=== PATIENT | female | born 1950 | race Caucasian/White ===

== ENCOUNTER 2016-05-05 02:21 | Inpatient (IN) ==
--- NOTE | 2016-05-04 09:48 | EKG Report ---
Test Performed on : 05/04/2016 09:32:43 AM Test Reason : PAT Blood Pressure : / mmHG Vent. Rate : 069 BPM Atrial Rate : 069 BPM P-R Int : 172 ms QRS Dur : 082 ms QT Int : 410 ms P-R-T Axes : 069 269 066 degrees QTc Int : 439 ms Normal sinus rhythm. Right superior axis deviation Abnormal ECG No previous ECGs available Confirmed by Toya ESCALANTE, Bryan Talamantes ([id number]) on 05/06/2016 3:21:49 PM
[2016-05-04 09:57] LABS: MANUAL DIFF NEEDED? NO; URINE MICRO REVIEW NEEDED? NO; URINE SOURCE CLEAN CATCH
[2016-05-04 10:01] LABS: BILIRUBIN URINE NEGATIVE (NEGATIVE); BLOOD URINE TRACE (NEGATIVE); COLOR YELLOW; GLUCOSE URINE NEGATIVE (NEGATIVE); LEUKOCYTES URINE LARGE (NEGATIVE); NITRITE URINE NEGATIVE (NEGATIVE); PH URINE 5.5; PROTEIN URINE NEGATIVE (NEGATIVE); SP GRAVITY URINE 1.018; TURBIDITY URINE HAZY (CLEAR); UR EPITHELIAL CELLS <10 /HPF (<10); URINE BACTERIA NEGATIVE /HPF; URINE RBC <10 /HPF (<10); UROBILINOGEN URINE NORMAL (NORMAL)
[2016-05-04 10:07] LABS: BASO% 0.7 % (0.0-0.8); EOS# 0.11 X1000 (0.0-0.7); EOS% 1.5 % (0.0-10.0); HEMATOCRIT 42.4 % (37.0-47.0); HEMOGLOBIN 14.7 g/dL (12.0-16.0); LYMPH# 1.91 X1000 (1.2-3.4); LYMPH% 26.5 % (20.5-51.1); MCH 34.8 PG (27-31); MCHC 34.7 g/dL (33-37); MCV 100.5 FL (81-99); MONO# 0.75 X1000 (0.11-0.59); MONO% 10.4 % (1.7-9.3); MPV 10.7 FL (7.4-10.4); NEUT% 60.9 % (42.2-75.2); PLT 257 X1000 (130-400); RBC 4.22 XMIL (4.2-5.4)
[2016-05-04 10:20] LABS: AGAP 15; BUN 11 mg/dL (8-22); CALCIUM 10.1 mg/dL (8.8-10.2); CHLORIDE 101 mmol/L (98-107); COSMO 282; POTASSIUM 4.7 mmol/L (3.5-5.1); SODIUM 142 mmol/L (136-145); TCO2 26 mmol/L (25-35)
--- NOTE | 2016-05-04 15:00 | Diag Imaging Result Document ---
PROCEDURE NAME: CHEST-2 VIEWS - 05/04/2016 CHEST X-RAY 2 VIEWS: COMPARISON: 08/21/2013. FINDINGS: There is grossly stable hyperinflation of the lungs suggesting COPD. There is a compression fracture at the bottom of the film on the lateral view, in the upper lumbar spine. This is age indeterminate. IMPRESSION: COPD. Age-indeterminate lumbar spine compression fracture.
[2016-05-05] MEDS ORDERED: FLAGYL 1000 MG/NS 200 ML IV ONE (07:00)
[2016-05-05] MEDS: LR 1,000 ML ONE (07:00)
[2016-05-05] MEDS: LEVAQUIN 500 MG/D5W 100 ML ONE ×2 (07:00→07:35)
[2016-05-05 09:22] LABS: URINE MICRO REVIEW NEEDED? NO; URINE SOURCE CATH
[2016-05-05 09:59] LABS: BILIRUBIN URINE NEGATIVE (NEGATIVE); BLOOD URINE NEGATIVE (NEGATIVE); COLOR YELLOW; GLUCOSE URINE NEGATIVE (NEGATIVE); LEUKOCYTES URINE NEGATIVE (NEGATIVE); NITRITE URINE NEGATIVE (NEGATIVE); PH URINE 6.5; PROTEIN URINE TRACE mg/dL (NEGATIVE); SP GRAVITY URINE 1.019; TURBIDITY URINE CLEAR (CLEAR); UROBILINOGEN URINE NORMAL (NORMAL)
[2016-05-05 10:00] LABS: UR EPITHELIAL CELLS <10 /HPF (<10); URINE BACTERIA NEGATIVE /HPF; URINE RBC 20-40 /HPF (<10); URINE WBC <10 /HPF (<10)
[2016-05-05] MEDS: PHENERGAN ONE ×3 (10:47→11:30)
[2016-05-05] MEDS ORDERED: FENTANYL ONE (10:51)
[2016-05-05] MEDS ORDERED: DIPRIVAN 1% ONE (10:51)
[2016-05-05] MEDS: DILAUDID ONE ×3 (10:56→11:06)
[2016-05-05] MEDS ORDERED: LR 1,000 ML ONE (11:16)
[2016-05-05] MEDS ORDERED: ZOFRAN ONE (11:24)
[2016-05-05] MEDS ORDERED: DECADRON ONE (11:24)
[2016-05-05] MEDS ORDERED: NEO-SYNEPHRINE ONE (11:24)
[2016-05-05] MEDS ORDERED: OFIRMEV 1000 MG/ISOTONIC SOLN 100 ML ONE (11:24)
[2016-05-05] MEDS ORDERED: QUELICIN (DOSE) ONE (11:24)
[2016-05-05] MEDS ORDERED: NEOSTIGMINE ONE (11:24)
[2016-05-05] MEDS ORDERED: ROBINUL ONE (11:24)
[2016-05-05] MEDS ORDERED: LR 2,000 ML ONE (11:24)
[2016-05-05] MEDS ORDERED: NORCURON ONE (11:24)
[2016-05-05] MEDS ORDERED: XYLOCAINE-MPF 2% ONE (11:24)
[2016-05-05] MEDS ORDERED: SODIUM CHLORIDE 0.9% 20 ML ONE (11:24)
--- NOTE | 2016-05-05 11:35 | OPERATIVE NOTE ---
PROCEDURE DATE: 05/05/2016 PREOPERATIVE DIAGNOSIS: Lesion of descending colon with high-grade dysplasia. Previous colonoscopy by Dr. Heart. PROCEDURE: Patient was brought to the operating room. After satisfactory induction of IV and endotracheal anesthesia, athrombic TEDs, a Luciano catheter, and orogastric tubes were placed. Her abdomen was broadly prepped and draped in the appropriate manner for a midline laparotomy. A xiphoid infraumbilical midline incision was taken sharply down through skin and subcutaneous tissue. The patient had had a previous lower midline incision from abdominal hysterectomy. Adhesions were taken down. The lesion was advertised as being in the splenic flexure. The splenic flexure was subsequently mobilized, with no evidence of tattoo or palpable lesion. In the descending mid area, the colon was quite redundant and had a large sharp band. On mobilization of this, the tattoo was discovered as well as the palpable lesion. A sleeve of descending colon was subsequently performed with removal of a portion of the descending colon 5 cm above and below the tattooed area. This was done with a MAXIMO stapler. Mesenteric attachments were taken down with the LigaSure instrument. A dmxv-je-tscg anastomosis was subsequently performed with the MAXIMO and closed off with a TA-45. The anastomosis would admit the tip of 2 fingers. The mesenteric defect was closed with interrupted 3-0 silk and the anastomosis staple line was bossed up with 2-0 silk. On completion and after accounting for all laparotomy sponges, the abdomen was irrigated. The spleen was inspected, felt not to be bleeding, and closure was subsequently initiated. The peritoneum was closed with a single running layer of #1 Vicryl. The fascia was closed with interrupted #1 Maxon. Subcutaneous tissue was debrided and the skin was closed with stainless steel clips. Sterile dressing was applied. The Luciano catheter was left indwelling. Orogastric tube was removed. She was awakened and extubated in the operating room, and transferred to recovery. ESTIMATED BLOOD LOSS: Around 100 mL.
[2016-05-05] MEDS ORDERED: DILAUDID PCA VIAL ONE (12:02)
[2016-05-05] MEDS ORDERED: NS 1,000 ML ONE (12:07)
[2016-05-05] MEDS ORDERED: NARCAN 0.4 MG in LR 1,000 ML IV PRN (16:31)
[2016-05-05] MEDS ORDERED: NARCAN IV PRN (16:31)
[2016-05-05] MEDS ORDERED: DILAUDID PCA VIAL IV PRN (16:31)
[2016-05-05] MEDS ORDERED: ZOFRAN IV PRN (16:31)
[2016-05-05] MEDS: FLAGYL 1000 MG/NS 200 ML IV SCH (17:33)
[2016-05-05] MEDS: PERIDEX MT SCH (20:53)
[2016-05-06] MEDS: FLAGYL 1000 MG/NS 200 ML IV SCH (00:46)
[2016-05-06] MEDS: NS 1,000 ML IV SCH ×3 (05:40→21:46)
[2016-05-06 06:06] LABS: MANUAL DIFF NEEDED? NO
[2016-05-06 06:26] LABS: BASO% 0.1 % (0.0-0.8); HEMATOCRIT 35.3 % (37.0-47.0); HEMOGLOBIN 11.8 g/dL (12.0-16.0); LYMPH# 0.74 X1000 (1.2-3.4); LYMPH% 7.2 % (20.5-51.1); MCH 33.6 PG (27-31); MCHC 33.4 g/dL (33-37); MCV 100.6 FL (81-99); MONO# 1.15 X1000 (0.11-0.59); MONO% 11.2 % (1.7-9.3); MPV 11.4 FL (7.4-10.4); NEUT% 81.5 % (42.2-75.2); PLT 199 X1000 (130-400); RBC 3.51 XMIL (4.2-5.4)
[2016-05-06 06:34] LABS: AGAP 11; BUN 8 mg/dL (8-22); CALCIUM 8.8 mg/dL (8.8-10.2); CHLORIDE 104 mmol/L (98-107); COSMO 274; POTASSIUM 3.9 mmol/L (3.5-5.1); SODIUM 138 mmol/L (136-145); TCO2 23 mmol/L (25-35)
--- NOTE | 2016-05-06 07:19 | EKG Report ---
Test Performed on : 05/06/2016 06:38:52 AM Test Reason : post-op Blood Pressure : / mmHG Vent. Rate : 066 BPM Atrial Rate : 066 BPM P-R Int : 162 ms QRS Dur : 080 ms QT Int : 382 ms P-R-T Axes : 068 -77 044 degrees QTc Int : 400 ms Normal sinus rhythm. Left axis deviation Nonspecific T wave abnormality Abnormal ECG When compared with ECG of 04-MAY-2016 09:32, (Unconfirmed) Nonspecific T wave abnormality, worse in Anterolateral leads Confirmed by Toya ESCALANTE, Bryan Talamantes ([id number]) on 05/06/2016 3:23:47 PM
[2016-05-06] MEDS: PERIDEX MT SCH ×3 (07:27→21:45)
[2016-05-06] MEDS: LR 1,000 ML IV SCH ×2 (07:35→16:05)
[2016-05-06] MEDS ORDERED: LEVAQUIN 500 MG/D5W 100 ML IV ONE (08:00)
[2016-05-07 07:14] LABS: MANUAL DIFF NEEDED? NO
[2016-05-07 07:18] LABS: BASO% 0.1 % (0.0-0.8); EOS# 0.06 X1000 (0.0-0.7); EOS% 0.7 % (0.0-10.0); HEMATOCRIT 35.1 % (37.0-47.0); HEMOGLOBIN 11.5 g/dL (12.0-16.0); LYMPH# 1.06 X1000 (1.2-3.4); LYMPH% 13.1 % (20.5-51.1); MCH 33.9 PG (27-31); MCHC 32.8 g/dL (33-37); MCV 103.5 FL (81-99); MONO# 0.86 X1000 (0.11-0.59); MONO% 10.6 % (1.7-9.3); MPV 11.2 FL (7.4-10.4); NEUT% 75.5 % (42.2-75.2); PLT 175 X1000 (130-400); RBC 3.39 XMIL (4.2-5.4)
[2016-05-07 07:32] LABS: AGAP 15; BUN 9 mg/dL (8-22); CALCIUM 8.5 mg/dL (8.8-10.2); CHLORIDE 102 mmol/L (98-107); COSMO 275; POTASSIUM 3.7 mmol/L (3.5-5.1); SODIUM 139 mmol/L (136-145); TCO2 22 mmol/L (25-35)
[2016-05-07] MEDS: PERIDEX MT SCH ×2 (09:44→21:52)
[2016-05-07] MEDS: LOVENOX SUBQ SCH (11:24)
[2016-05-07] MEDS: NS 1,000 ML IV SCH (11:24)
[2016-05-07] MEDS ORDERED: ZOFRAN IV PRN (16:21)
[2016-05-07] MEDS ORDERED: D/C PCA XX ONE (16:21)
[2016-05-07] MEDS: ZOFRAN PO SCH ×2 (17:42→21:52)
[2016-05-07] MEDS: LR 1,000 ML IV SCH (18:39)
[2016-05-07] MEDS: NORCO-5 PO PRN (21:51)
[2016-05-07] MEDS: COLACE PO SCH (21:51)
[2016-05-08] MEDS: NORCO-5 PO PRN ×4 (02:28→23:24)
[2016-05-08] MEDS: ZOFRAN PO SCH ×4 (05:15→23:24)
[2016-05-08] MEDS: NS 1,000 ML IV SCH (05:15)
[2016-05-08 06:02] LABS: MANUAL DIFF NEEDED? NO
[2016-05-08 06:14] LABS: BASO% 0.6 % (0.0-0.8); EOS# 0.21 X1000 (0.0-0.7); HEMATOCRIT 35.9 % (37.0-47.0); IMM GRAN# 0.02 X1000 (0.0-0.04); IMM GRAN% 0.4 % (0.0-0.5); LYMPH# 1.25 X1000 (1.2-3.4); LYMPH% 23.5 % (20.5-51.1); MCH 33.4 PG (27-31); MCHC 33.4 g/dL (33-37); MONO# 0.58 X1000 (0.11-0.59); MONO% 10.9 % (1.7-9.3); MPV 11.3 FL (7.4-10.4); NEUT% 60.6 % (42.2-75.2); PLT 195 X1000 (130-400); RBC 3.59 XMIL (4.2-5.4)
--- NOTE | 2016-05-08 10:19 | Diag Imaging Result Document ---
PROCEDURE NAME: FLAT/UPRIGHT ABD/1 VIEW CHEST - 05/08/2016 FLAT AND UPRIGHT WITH CHEST, THREE VIEWS: COMPARISON: The chest is compared to 05/04/2016. FINDINGS: The lungs remain well expanded and clear. No cardiomegaly. No free air beneath the diaphragm. There are multiple midline skin jake. Air is found throughout the small bowel and colon. No definite distention accept for the cecum filled with air. There are sutures in the pelvis. No organomegaly. No abnormal abdominal calcifications. IMPRESSION: The patient may have a mild ileus.
[2016-05-08] MEDS: COLACE PO SCH ×2 (10:25→23:24)
[2016-05-08] MEDS: THERA M PLUS PO SCH (10:25)
[2016-05-08] MEDS: LOVENOX SUBQ SCH (10:26)
[2016-05-08] MEDS: PERIDEX MT SCH (10:26)
[2016-05-08] MEDS ORDERED: DULCOLAX PR ONE (10:30)
[2016-05-09] MEDS: PERIDEX MT SCH ×3 (01:35→20:31)
[2016-05-09] MEDS: ZOFRAN PO SCH ×4 (06:11→22:36)
[2016-05-09] MEDS ORDERED: DULCOLAX PR ONE (08:44)
--- NOTE | 2016-05-09 09:18 | Diag Imaging Result Document ---
PROCEDURE NAME: FLAT/UPRIGHT ABD/1 VIEW CHEST - 05/09/2016 PLAIN RADIOGRAPH OF THE CHEST AND ABDOMEN, 3 VIEWS: COMPARISON: 05/08/2016. FINDINGS: Air is seen throughout the colon and small bowel similar to the previous study. There is no severe distention. This probably represents a mild ileus that is essentially stable. There is no large volume free abdominal gas. The abdomen is grossly stable, otherwise. There is stable linear mild atelectasis and/or scarring at the mid and lower lung zones. No new consolidations are identified. Cardiac silhouette is stable. IMPRESSION: Stable colonic and small bowel gas throughout the abdomen.
[2016-05-09] MEDS: COLACE PO SCH ×2 (10:06→20:31)
[2016-05-09] MEDS: THERA M PLUS PO SCH (10:06)
[2016-05-09] MEDS: NORCO-5 PO PRN ×3 (10:07→22:35)
[2016-05-09] MEDS: LOVENOX SUBQ SCH (10:07)
[2016-05-09] MEDS: DULCOLAX PR SCH (20:32)
[2016-05-09] MEDS: NS 1,000 ML IV SCH (22:40)
[2016-05-10] MEDS ORDERED: ZOFRAN PO PRN (04:51)
[2016-05-10] MEDS ORDERED: SALINE LOCK IV FLUID XX ONE (09:25)
[2016-05-10] MEDS: LOVENOX SUBQ SCH (12:14)
[2016-05-10] MEDS: NORCO-5 PO PRN ×2 (12:14→21:10)
[2016-05-10] MEDS: COLACE PO SCH ×2 (12:15→20:32)
[2016-05-10] MEDS: PERIDEX MT SCH ×2 (12:15→20:32)
[2016-05-10] MEDS: THERA M PLUS PO SCH (12:15)
[2016-05-10] MEDS: DULCOLAX PR SCH (20:33)
[2016-05-11 08:47] VITALS: BP 126/80
[2016-05-11] MEDS: THERA M PLUS PO SCH (10:01)
[2016-05-11] MEDS: PERIDEX MT SCH (10:02)
[2016-05-11] MEDS: LOVENOX SUBQ SCH (10:02)
[2016-05-11] MEDS: NORCO-5 PO PRN (10:07)
[2016-05-11] MEDS: COLACE PO SCH (10:07)
--- NOTE | 2016-05-11 11:07 | DISCHARGE SUMMARY ---
ADMISSION DATE: 05/05/2016 DISCHARGE DATE: 05/11/2016 DIAGNOSIS: Sigmoid colon cancer, T1, N0, M0. PROCEDURE PERFORMED: Partial left colectomy with primary anastomosis. HOSPITAL COURSE: The patient is a 65-year-old, white female referred by Dr. Heart for evaluation of a highly dysplastic lesion in her descending colon with the possibility of this being a cancer. It was a sessile polyp that was not able to be removed but several biopsies were obtained. She had other scattered benign polyps that had been removed at the same time. The patient underwent an outpatient mechanical and chemical bowel prep. On the day of surgery, underwent a partial left colectomy for removal of the tattooed lesion. It eventually revealed a superficial carcinoma with no stalk invasion and no positive lymph nodes. Hospitalization was initially complicated by mild ileus but this resolved. The patient subsequently tolerated her dietary advancements well and is eating solid food, and having some spontaneous bowel movements at this time. The wound appears to be well healed. She is for 21 days rehab in the senior living and then should be able to go home. There are no plans for chemotherapy or radiation. She will be followed by Dr. Heart with colonoscopies in 6 months.
== END 2016-05-11 14:49 | DRG 330 ==
LOC: SURHOLD 02:21 → 4N 16:15
PROVIDERS: ADMIT Surgery; ATTEND Surgery
PROC: 0DBM0ZZ Excision of Descending Colon, Open Approach (ICD-10-PCS; principal; 2016-05-05 09:02)
DX: C18.6 Malignant neoplasm of descending colon (principal); K91.89 Other postprocedural complications and disorders of digestive system; K56.7 Ileus, unspecified; Q43.8 Other specified congenital malformations of intestine; E03.9 Hypothyroidism, unspecified; M19.90 Unspecified osteoarthritis, unspecified site; M06.9 Rheumatoid arthritis, unspecified; Z87.891 Personal history of nicotine dependence
CPT/HCPCS: 71020; 74022; 80048; 81001; 82948; 85025; 86850; 86900; 86901; 88307; 88313; 93005; 93010; 94761; 94799; J0131; J0330; J1100; J1170; J1650; J2370; J2405; J2550; J3010; J7030; J7120; J2710; S0030

== ENCOUNTER 2018-10-03 13:19 | Inpatient (IN) ==
[2018-10-03] MEDS ORDERED: ASPIRIN PO ONE (13:39)
--- NOTE | 2018-10-03 13:43 | EKG Report ---
Test Performed on : 10/03/2018 1:27:39 PM Test Reason : CP Blood Pressure : / mmHG Vent. Rate : 098 BPM Atrial Rate : 098 BPM P-R Int : 128 ms QRS Dur : 064 ms QT Int : 342 ms P-R-T Axes : 061 269 069 degrees QTc Int : 436 ms Normal sinus rhythm. Inferior infarct , age undetermined Possible Anterolateral infarct , age undetermined Abnormal ECG When compared with ECG of 06-MAY-2016 06:38, Vent. rate has increased BY 32 BPM Nonspecific T wave abnormality no longer evident in Inferior leads Nonspecific T wave abnormality, improved in Anterolateral leads Unconfirmed Result
[2018-10-03 13:57] LABS: BASO% 1.3 % (0.0-0.8); EOS# 0.43 X1000 (0.0-0.7); EOS% 5.8 % (0.0-10.0); HEMATOCRIT 43.4 % (37.0-47.0); IMM GRAN# 0.02 X1000 (0.0-0.04); IMM GRAN% 0.3 % (0.0-0.5); LYMPH# 1.18 X1000 (1.2-3.4); LYMPH% 15.8 % (20.5-51.1); MCH 34.8 PG (27-31); MCHC 34.6 g/dL (33-37); MCV 100.7 FL (81-99); MONO# 0.76 X1000 (0.11-0.59); MONO% 10.2 % (1.7-9.3); MPV 9.7 FL (7.4-10.4); NEUT# 4.97 X1000 (1.4-6.5); NEUT% 66.6 % (42.2-75.2); PLT 346 X1000 (130-400); RBC 4.31 XMIL (4.2-5.4); RDW 13.6 % (11.5-14.5); WBC 7.46 X1000 (4.8-10.8)
--- NOTE | 2018-10-03 13:58 | Diag Imaging Result Doc PS360 ---
CHEST-2 VIEWS - 10/03/2018 INDICATION: CP COMPARISON: 05/09/2016 FINDINGS: Stable hyperexpanded lungs compatible with COPD. No infiltrates or edema. Heart size and pulmonary vascularity is normal. There is a high-grade compression fracture at L1. This is age-indeterminate, but probably new since 2017. IMPRESSION: COPD. Compression fracture at L1. Electronically signed by William Zayas 10/03/2018 1:56 PM
[2018-10-03 14:05] LABS: INR 0.9; PROTIME 12.2 Seconds (11.0-16.0)
[2018-10-03 14:06] LABS: PTT 29.5 Seconds (22.3-41.8)
[2018-10-03 14:17] LABS: AGAP 19; ALB/GLOB RATIO 1.6; ALBUMIN 4.3 g/dL (3.5-5.0); ALKALINE PHOSPHATASE 128 U/L (32-104); BUN 12 mg/dL (8-22); CALCIUM 9.8 mg/dL (8.8-10.2); CHLORIDE 101 mmol/L (98-107); CK PROFILE 19 U/L (24-173); COSMO 280; CREATININE 0.5 mg/dL (0.5-0.9); ESTIMATED GFR > 60; GLUCOSE 114 mg/dL (70-104); GOT 19 U/L (10-30); GPT 12 U/L (10-36); LIPASE 17 U/L (13-60); POTASSIUM 4.8 mmol/L (3.5-5.1); SODIUM 140 mmol/L (136-145); TCO2 20 mmol/L (25-35); TOTAL BILIRUBIN 0.47 mg/dL (0.20-1.00)
--- NOTE | 2018-10-03 15:20 | PROVIDER DOCUMENTATION ---
This chart was entered by Radha Massey Scribe, acting as scribe for Rajani Razo CRNP. HPI-Abdominal Pain/GI Problem - General Chief Complaint: Chest Pain Stated Complaint: CP,WEAK,VOMITING,DIABETIC,RT SIDE PAIN Time Seen by Provider: 10/03/18 15:05 Source: patient Allergies/Adverse Reactions: Patient Allergies Allergy/AdvReac Type Severity Reaction Status Date / Time Penicillins Allergy Severe ANAPHYLAXIS Verified 10/03/18 15:05 acetaminophen [From NyQuil] Allergy SWELLING Verified 10/03/18 15:05 dextromethorphan HBr * Allergy SWELLING Verified 10/03/18 15:05 [From NyQuil] doxylamine succinate * Allergy SWELLING Verified 10/03/18 15:05 [From NyQuil] pseudoephedrine HCl * Allergy SWELLING Verified 10/03/18 15:05 [From NyQuil] Home Medications: Home Medication List Medication Instructions Recorded Confirmed Last Taken Type NK [No Home Medications] 10/03/18 10/03/18 Unknown History - History of Present Illness-ABD Nature of Presenting Problems: 68 y/o female presents to ED with R rib/chest wall pain, abdominal pain,N/V, and weakness onset last week. Pt reports eating and inspiration exacerbates her pain. Pt denies SOB, fever, or chills. Pt states last bowel movement was yesterday. Pt is alert and oriented. Abdominal Pain Onset Location: reports: generalized abdomen Pain Radiation: reports: no radiation Quality of Pain: reports: aching Severity in ED: reports: mild Onset/Duration: reports: last week Timing: reports: still present Activities at Onset: reports: none Exposure to sick contacts?: No Modifying Factors: worse with: breathing, eating, palpation Associated Symptoms: reports: nausea, vomiting, weakness, other (R rib/chest wall pain; abdominal pain) Last BM: 24 hours ago Dark Stools Present?: reports: none noticed Rectal Bleeding: reports: none Rectal Pain: reports: none Similar Symptoms Previously?: No Recently seen or treated by another doctor?: No Review of Systems - Adult - REVIEW OF SYSTEMS - ADULT Constitutional: denies: chills, fever Eyes: reports: no symptoms reported Ears, Nose, Mouth & Throat: reports: no symptoms reported Cardiovascular: denies: chest pain, palpitations Respiratory: denies: cough, shortness of breath Gastrointestinal: reports: abdominal pain, nausea, vomiting. denies: diarrhea Genitourinary: reports: no symptoms reported Musculoskeletal: reports: other (R rib/chest wall pain). denies: back pain, joint pain Integumentary: reports: no symptoms reported Neurological: reports: other (weakness). denies: dizziness/vertigo, seizure Psychiatric: reports: no symptoms reported Endocrine: reports: no symptoms reported Hematologic/Lymphatic: reports: no symptoms reported Allergic/Immunologic: reports: no symptoms reported All Other Systems: Reviewed and Negative Past History - Adult - PAST MEDICAL HISTORY-ADULT Review of Records: reports: Old Records Reviewed, Nursing Assessment Review, Medications Reviewed Major Childhood Illnesses: reports: denies history Psychiatric: reports: anxiety Endocrine/Immune: reports: Diabetes, hypoglycemia - PRIOR SURGERIES/PROCEDURES Surgical/Procedure History: reports: hysterectomy, bowel surgery (colon resection) - IMMUNIZATION STATUS Childhood Immunizations: See Nurse Assessment Flu Vaccine: See Nurse Assessment - FAMILY HISTORY Family History: reviewed, not pertinent - SOCIAL HISTORY Smoking: less than 1 pack/day Provider spent 3-5 mins advising pt. on dangers of tobacco.: Discussed manners to quit use, and f/u contacts for add'l counseling. Substance Use: none/never Alcohol Use Frequency: every day Number of drinks per typical drinking period:: 3-4 drinks Living Situation: family Physical Exam-General - PHYSICAL EXAM-ADULT Initial Vital Signs Reviewed: Yes - CONSTITUTIONAL General Appearance: appears well, alert, no apparent distress - EYES Eyes: PERRL/EOMI, pink conjunctivae - HEAD, EARS, NOSE, MOUTH & THROAT HENMT: normocephalic/atraumatic, moist mucous membranes, normal ENT inspection - NECK Neck: non-tender, full range of motion - RESPIRATORY Respiratory: lungs clear, normal breath sounds, other (tenderness at the base of R ribs with palpation and inspiration) - CARDIOVASCULAR Cardiovascular: normal peripheral pulses, regular rate, rhythm - GASTROINTESTINAL (ABDOMEN) Abdominal Exam: normal bowel sounds, soft, tenderness (RLQ) - MUSCULOSKELETAL Back Exam: normal inspection, no CVA tenderness, no vertebral tenderness Extremity: normal range of motion, non-tender, normal gait - SKIN Integumentary: normal color, warm/dry - NEUROLOGIC Neurologic: grossly normal - PSYCHIATRIC Psych/Mental Status: normal mood/affect, normal thought content, normal thought process, oriented x 3 Progress - PLAN OF CARE/RESULTS Progress/Plan/Lab Results: Vital Signs - 8 hr 10/03/18 13:27 Temperature 97.6 F Pulse Rate 102 H Respiratory Rate 19 Blood Pressure 119/76 O2 Sat by Pulse Oximetry 97 Laboratory Results - last 24 hr 10/03/18 10/03/18 10/03/18 13:44 13:44 13:44 WBC 7.46 RBC 4.31 Hgb 15.0 Hct 43.4 MCV 100.7 H MCH 34.8 H MCHC 34.6 RDW Std Deviation 13.6 Plt Count 346 MPV 9.7 Immature Gran % (Auto) 0.3 Neut % (Auto) 66.6 Lymph % (Auto) 15.8 L [place] % (Auto) 10.2 H Eos % (Auto) 5.8 Baso % (Auto) 1.3 H Immature Gran # (Auto) 0.02 Neut # (Auto) 4.97 Lymph # (Auto) 1.18 L [place] # (Auto) 0.76 H Eos # (Auto) 0.43 Baso # (Auto) 0.10 PT INR PTT (Actin FS) Sodium 140 Potassium 4.8 Chloride 101 Carbon Dioxide 20 L Anion Gap 19 BUN 12 Creatinine 0.5 Estimated GFR/1.73 m2 > 60 BUN/Creatinine Ratio 24 Glucose 114 H Calculated Osmolality 280 Calcium 9.8 Total Bilirubin 0.47 AST 19 ALT 12 Alkaline Phosphatase 128 H Creatine Kinase 19 L Troponin T Ttp-W-Xjgrcyqnluf Pept 1021 H Total Protein 7.0 Albumin 4.3 Globulin 2.7 Albumin/Globulin Ratio 1.6 Lipase 17 10/03/18 10/03/18 13:44 13:44 WBC RBC Hgb Hct MCV MCH MCHC RDW Std Deviation Plt Count MPV Immature Gran % (Auto) Neut % (Auto) Lymph % (Auto) [place] % (Auto) Eos % (Auto) Baso % (Auto) Immature Gran # (Auto) Neut # (Auto) Lymph # (Auto) [place] # (Auto) Eos # (Auto) Baso # (Auto) PT 12.2 INR 0.90 PTT (Actin FS) 29.5 Sodium Potassium Chloride Carbon Dioxide Anion Gap BUN Creatinine Estimated GFR/1.73 m2 BUN/Creatinine Ratio Glucose Calculated Osmolality Calcium Total Bilirubin AST ALT Alkaline Phosphatase Creatine Kinase Troponin T < 0.010 Jya-W-Idogxdwaexk Pept Total Protein Albumin Globulin Albumin/Globulin Ratio Lipase Orders Category Date Time Status Cardiac Monitoring DIRECTED Care 10/03/18 13:39 Active Oxygen Therapy- ED Nursing DIRECTED Care 10/03/18 13:39 Active Saline Loc NOW Care 10/03/18 13:39 Active NPO Diet 10/03/18 13:39 Active CHEST-2 VIEWS [RAD] Stat Exams 10/03/18 13:[address] ABD/PELVIS W/IV CONT ONLY [CT] Stat Exams 10/03/18 15:02 Ordered CBC WITH DIFF [HEME] Stat Lab 10/03/18 13:44 Completed CK PROFILE [SP CHEM] Stat Lab 10/03/18 13:44 Completed COMPREHENSIVE METABOLIC PANEL [CHEM] Stat Lab 10/03/18 13:44 Completed LIPASE [CHEM] Stat Lab 10/03/18 13:44 Completed PRO B-NATRIURETIC PEPTIDE Stat Lab 10/03/18 13:44 Completed PROTIME WITH INR [COAG] Stat Lab 10/03/18 13:44 Completed PTT [COAG] Stat Lab 10/03/18 13:44 Completed TROPONIN T Stat Lab 10/03/18 13:44 Completed Aspirin Med 10/03/18 13:39 Discontinued 325 mg PO NOW ONE Abd Pain/OB <20 weeks Stat Oth 10/03/18 13:39 Ordered CP/SOB/Palp >45 yrs of Age Stat Oth 10/03/18 13:39 Ordered EKG [EKG] Stat Ther 10/03/18 13:39 Draft Result Diagrams: 10/03/18 13:44 10/03/18 13:44 - EKG 1 Time of EKG reading by physician:: 13:29 EKG Read and Signed by:: Rajani Razo EKG Interpretation (*Must complete 3 of following elements*): Abnormal Rate: 98 Rhythm: NSR [place]: normal QRS: other (inferior infarct; possible anterolateral infarct) MI Interval: normal ST Wave: normal - XRAY 1 XRAY Study: Chest Impression: See EMR Report ([facility] - [address], [address], [place] [address] [facility] - [address] [place] [address] Department of Imaging Patient: ILSA LUCIANO Date: 10/03/18MR#: [id number] : 1950ADM Status: PRE ERAcct#: [id number] Age/Sex: 68/FRoom/Bed: Loc: ED Ordering Physician: Rachana Lewis MD Family Physician: None,PCP Reason for Procedure: CP ___ Signed CHEST-2 VIEWS - 10/03/2018 INDICATION: CP COMPARISON: 05/09/2016 FINDINGS: Stable hyperexpanded lungs compatible with COPD. No infiltrates or edema. Heart size and pulmonary vascularity is normal. There is a high-grade compression fracture at L1. This is age-indeterminate, but probably new since 2017. IMPRESSION: COPD. Compression fracture at L1. Electronically signed by William Zayas 10/03/2018 1:56 PM 10/03/18 1356 Interpreting Physician: William Zayas MD Dictated Date/Time: 10/03/18 1356 cc: Rachana Lewis MD; None,PCP) - CT/MRI 1 CT Study: Abdomen, Pelvis Impression: See EMR Report ([facility] - [address], [address], [place] [id number] [facility] - [address] [place] [address] Department of Imaging Patient: ILSA LUCIANO Date: 10/03/18#: [id number] : 1950ADM Status: PRE ERAcct#: [id number] Age/Sex: 68/FRoom/Bed: Loc: ED Ordering Physician: Rajani Razo Family Physician: None,PCP Reason for Procedure: abd pain RUQ TENDERNESS, RLQ TENDERNESS Signed CT ABD/PELVIS W/IV CONT ONLY - 10/03/2018 INDICATION: abd pain RUQ TENDERNESS, RLQ TENDERNESS COMPARISON: None FINDINGS: No infiltrates in the lung bases. Heart size is normal with no pericardial effusion. There is a large irregular mass centered about the hepatic flexure of the colon. This displaces the gallbladder anteriorly. This mass measures about 9.3 x 8.8 cm. This demonstrates heterogeneous, primarily peripheral contrast enhancement. There is no bowel obstruction. There are surgical suture lines at the sigmoid colon. There is cystitis. Uterus is absent. Rectum is normal. The liver, gallbladder, spleen, pancreas, adrenals, and kidneys are normal. There are old compression fractures at T12 and L2. No suspicious bony lesions. IMPRESSION: 1. Large mass in the right upper quadrant indicating advanced malignancy. Most likely represents colon cancer. Other possibilities include ovarian, endometrial, hepatobiliary, or pancreatic tumor. 2. Cystitis. This exam was performed using automated exposure control, adjustment of mA or kV according to patient size, and/or use of iterative reconstruction technique Electronically signed by William Zayas 10/03/2018 4:12 PM 10/03/18 1612 Interpreting Physician: William Zayas MD Dictated Date/Time: 10/03/18 1608 cc: Rajani Razo; No ne,PCP) - CONSULTS/PCP/HOSPITALIST Notification #1 *Consult/PCP/Hospitalist*: WARD Time Discussed: 16:46 Consult Disposition: Admit Departure - Departure Date of Disposition Decision: 10/03/18 Time of Disposition Decision: 16:46 DIAGNOSIS: Abdominal mass, Nausea & vomiting Disposition: ADMITTED INPATIENT 09 Certified Medical Emergency: Emergent Condition: Stable Referrals and Follow-Ups: None,PCP [NON-STAFF PROVIDER] - Discharge Education: Steps to Quit Smoking, Getl-pr-Ayki - Critical Care Note This patient required my direct & personal management of CC.: No Attestation - Physician/ MARICRUZ Attestation Patient care was provided by Advanced Practice Provider:: Yes Advanced Practice Provider:: Rajani Razo Advanced Practice Provider documentation review:: The Mid-level provider doc umentation, treatment plan and medical decision making was reviewed by the physician who agrees with all treatment and medical decision making by the MLP. The physician spent face to face time with patient:: No Advanced Practice Provider documentation review:: Supervising physician onsite and consulted in the evaluation and care of this patient. The physician did not have a face to face encounter with the patient. This chart was documented by the indicated scribe, (Radha Massey, Yumiko) and accurately reflects the services I performed and decisions made by , Rajani Razo CRNP, as attested by the provider's signature.
--- NOTE | 2018-10-03 16:15 | Diag Imaging Result Doc PS360 ---
CT ABD/PELVIS W/IV CONT ONLY - 10/03/2018 INDICATION: abd pain RUQ TENDERNESS, RLQ TENDERNESS COMPARISON: None FINDINGS: No infiltrates in the lung bases. Heart size is normal with no pericardial effusion. There is a large irregular mass centered about the hepatic flexure of the colon. This displaces the gallbladder anteriorly. This mass measures about 9.3 x 8.8 cm. This demonstrates heterogeneous, primarily peripheral contrast enhancement. There is no bowel obstruction. There are surgical suture lines at the sigmoid colon. There is cystitis. Uterus is absent. Rectum is normal. The liver, gallbladder, spleen, pancreas, adrenals, and kidneys are normal. There are old compression fractures at T12 and L2. No suspicious bony lesions. IMPRESSION: 1. Large mass in the right upper quadrant indicating advanced malignancy. Most likely represents colon cancer. Other possibilities include ovarian, endometrial, hepatobiliary, or pancreatic tumor. 2. Cystitis. This exam was performed using automated exposure control, adjustment of mA or kV according to patient size, and/or use of iterative reconstruction technique Electronically signed by William Zayas 10/03/2018 4:12 PM
[2018-10-03] MEDS ORDERED: ZOFRAN IV ONE (16:28)
--- NOTE | 2018-10-03 18:46 | HISTORY AND PHYSICAL ---
PRIMARY CARE PROVIDER: Scott Pennington MD EDITOR & CO FOUNDER: Suleiman Heart M.D. CHIEF COMPLAINT: Right upper quadrant abdominal pain with nausea and vomiting. HISTORY OF PRESENT ILLNESS: Ms. 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 He has been routinely followed up by her golf tournament consultant, Dr. Heart. She most recently had a colonoscopy in June of 2018 with biopsy at that time of a polyp at the splenic flexure, which shows tubulovillous adenoma, and she was informed that she will be having colonoscopies yearly as follow up. Her complaints are for 2 weeks she has had nausea and vomiting about 20 to 30 minutes after eating. She has developed right upper quadrant pain that is extremely tender to palpation, more weak and 25-30 pound weight loss. So workup included an abdominal pelvic CT which revealed a large mass in the right upper quadrant indicating advanced malignancy that is reported. It also shows cystitis so we will get a consult in for Oncology. She has never seen anyone before as last time the cancer was not invasive, and she did not require chemo or radiation. Dr. Olson is on- call. We will also consult Dr. Winston, gastroenterologists, that is fire prevention research engineer as well. Denies any fever or chills. No other complaints. PAST MEDICAL HISTORY: 1. 2017, sigmoid adenocarcinoma with colon resection. 2. Arthritis. 3. Seasonal allergies. PAST SURGICAL HISTORY: 1. June 2018 had colonoscopy with polypectomy. 2. Sigmoid colon resection 2016. 3. Hysterectomy. 4. Appendectomy. SOCIAL HISTORY: Smokes she claims to be 2 cigarettes per day, but she has been a smoker since the age of 13. She drinks beer daily anywhere from 2 to 3 beers every evening. Currently lives with her daughter. Denies any illicit drug use. FAMILY HISTORY: Mother had congestive heart failure. Father had cirrhosis. ALLERGIES: Penicillin, dextromethorphan, doxylamine and pseudoephedrine, also Codeine. HOME MEDICATIONS.: Currently none listed and at home she takes [id number] sometimes for her seasonal allergies and sinuses. REVIEW OF SYSTEMS: Fourteen-point review of systems are complete and all are negative except for those mentioned above in HPI. Poor p.o. intake for 2 weeks. PHYSICAL EXAMINATION: VITAL SIGNS: Temperature 97.6 degrees, heart rate 102, respiratory rate 19, blood pressure 119/76, O2 saturation 97% on room air, 5 feet 4 inches tall, 115 pounds. BMI is 19.7. GENERAL: Ms. Justine Hernandes is a 68-year-old female. She is in no acute distress. She is able to answer questions appropriately. HEENT: Atraumatic, normocephalic. Pupils equal, round, reactive to light. Extraocular movements intact. Mucous membranes are dry. NECK: Trachea midline. CARDIOVASCULAR: S1, S2. Regular rate and rhythm. No rubs, gallops, murmurs. No lower extremity edema. +2 dorsalis and radial pulses. Negative JVD or carotid bruits. PULMONARY: Clear to auscultation bilateral breath sounds. No accessory muscle use or work of breathing noted. Tolerating room air. GASTROINTESTINAL: Soft, severe tenderness in the right upper quadrant with palpation of the mass. Positive bowel sounds x4. EXTREMITIES: Moves all extremities equally. Full range of motion. NEUROLOGIC: A and O x3. Follows commands. Sensory is intact. SKIN: Warm, dry, intact. LABORATORY DATA: White blood cells 7000, hemoglobin 15, hematocrit 43, platelet count 346,000. INR 0.90, PTT is 29.5. Sodium 140, potassium 4.8, BUN 12, creatinine 0.5, glucose 114, calcium 9.8, bilirubin 0.47, AST 19, ALT 12, CK 19, troponin less than 0.01. ProBNP 1021, albumin 4.3. IMAGING: Chest x-ray: COPD and compression fracture of L1. Abdominal pelvic CT: Large mass in the right upper quadrant indicating evidence of malignancy, most likely represents colon cancer. Other possibilities include ovarian, endometrial, hepatobiliary or pancreatic tumor, and it also shows cystitis. EKG: Normal sinus rhythm, rate 98, QTc 436. ASSESSMENT AND PLAN: 1. Right upper quadrant abdominal mass with pain and history of sigmoid adenocarcinoma with polyps. Followed by Dr. Heart as outpatient. Most recently had a colonoscopy in June. We will consult Dr. Winston. Also consult Oncology for any further recommendations. We will do clear liquids for now. Advance as tolerated. Antiemetics as needed. Morphine for pain. 2. Imaging reveals cystitis, but she is asymptomatic. White count is normal, afebrile. We will get a urinalysis. 3. Arthritis, but she does not take any medication at home for it. 4. Seasonal allergies. No medications that she is taking right now. She only takes something p.r.n. at home. 5. Deep venous thrombosis prophylaxis. SCDs. 6. Tobacco abuse. Cessation discussed. 7. Daily drinking of beer anywhere from 2 to 3 beers per day. No history of withdrawal. Dictated by ANTHONY Hauser for Matt Shepard MD cc: ANTHONY Hauser Agree with the above. the following is my own face to face assessment. patient with large RUQ mass concerning for malignancy. uncertain primary as she has had a recent colonoscopy but also with history of early stage colon cancer. will get a biopsy of some kind and proceed from there. on exam, mild RUQ tenderness. normal bowel sounds. mass palpable. MTDD
[2018-10-03] MEDS: NS 1,000 ML IV SCH (20:29)
[2018-10-03] MEDS: MORPHINE IV PRN (20:52)
[2018-10-04 00:49] LABS: URINE SOURCE CLEAN CATCH
[2018-10-04 01:04] LABS: BILIRUBIN URINE NEGATIVE (NEGATIVE); BLOOD URINE MODERATE (NEGATIVE); COLOR YELLOW; GLUCOSE URINE NEGATIVE (NEGATIVE); KETONE URINE 20 mg/dL (NEGATIVE); LEUKOCYTES URINE NEGATIVE (NEGATIVE); NITRITE URINE NEGATIVE (NEGATIVE); PROTEIN URINE 30 mg/dL (NEGATIVE); TURBIDITY URINE CLEAR (CLEAR); UROBILINOGEN URINE NORMAL (NORMAL)
[2018-10-04 01:06] LABS: UR EPITHELIAL CELLS <10 /HPF (<10); URINE BACTERIA NEGATIVE /HPF; URINE RBC <10 /HPF (<10); URINE WBC <10 /HPF (<10)
[2018-10-04 05:37] LABS: BASO# 0.06 X1000 (0.0-0.2); BASO% 1.2 % (0.0-0.8); EOS# 0.47 X1000 (0.0-0.7); EOS% 9.4 % (0.0-10.0); HEMATOCRIT 40.2 % (37.0-47.0); HEMOGLOBIN 13.2 g/dL (12.0-16.0); LYMPH% 18.1 % (20.5-51.1); MCH 34.2 PG (27-31); MCHC 32.8 g/dL (33-37); MCV 104.1 FL (81-99); MONO# 0.59 X1000 (0.11-0.59); MONO% 11.8 % (1.7-9.3); MPV 9.9 FL (7.4-10.4); NEUT# 2.96 X1000 (1.4-6.5); NEUT% 59.5 % (42.2-75.2); PLT 269 X1000 (130-400); RBC 3.86 XMIL (4.2-5.4); RDW 13.5 % (11.5-14.5); WBC 4.98 X1000 (4.8-10.8)
[2018-10-04 05:40] LABS: INR 0.89; PROTIME 12.1 Seconds (11.0-16.0)
[2018-10-04 06:10] LABS: AGAP 12; ALB/GLOB RATIO 1.1; ALBUMIN 3.3 g/dL (3.5-5.0); ALKALINE PHOSPHATASE 97 U/L (32-104); BUN 11 mg/dL (8-22); CALCIUM 9.1 mg/dL (8.8-10.2); CHLORIDE 104 mmol/L (98-107); COSMO 273; CREATININE 0.5 mg/dL (0.5-0.9); ESTIMATED GFR > 60; GLUCOSE 87 mg/dL (70-104); GOT 14 U/L (10-30); GPT 9 U/L (10-36); MAGNESIUM 2.1 mg/dL (1.5-2.7); POTASSIUM 3.9 mmol/L (3.5-5.1); SODIUM 137 mmol/L (136-145); TCO2 21 mmol/L (25-35); TOTAL BILIRUBIN 0.37 mg/dL (0.20-1.00); TOTAL PROTEIN 6.3 g/dL (6.3-8.3)
[2018-10-04] MEDS: ZOFRAN IV PRN ×3 (08:23→17:58)
[2018-10-04] MEDS: MORPHINE IV PRN ×4 (08:24→17:59)
[2018-10-04] MEDS: PRILOSEC PO SCH (08:38)
[2018-10-04] MEDS: NS 1,000 ML IV SCH (08:39)
--- NOTE | 2018-10-04 11:21 | PROGRESS NOTE ---
DATE: 10/04/2018 INTERVAL HISTORY: Ms. Hernandes was admitted for right upper quadrant abdominal pain, nausea, and vomiting of about 2 weeks' duration. The CAT scan had suggested about a 9 x 8 cm right upper quadrant mass, though she had a biopsy in June 2018 which was just showing tubulovillous adenoma. SUBJECTIVE: She was sleepy. She woke up on my encounter. She denies a history of alcohol withdrawal. I counseled her about not drinking alcohol and stopping smoking. We discussed about CAT scan finding and the fact that we are waiting for GI and recommendations from oncology. VITALS: Currently, temperature 98.1 degrees, pulse 70, respiratory rate 18, blood pressure 137/64, she is saturating 98% on room air. PHYSICAL EXAMINATION: Cachectic. Not in any acute distress. Oral cavity is moist. Lungs: Air entry bilaterally equal. No wheeze, rhonchi, crackles. Cardiovascular: S1, S2 normal. No murmur, rub, or gallop. Abdomen: Soft, nontender except right upper quadrant epigastric where there is significant tenderness. Active bowel sounds. No lower extremity edema. LABS: Normal hemoglobin, though she does have macrocytosis. Normal kidney function. Normal electrolytes. MICROBIOLOGY: No data. IMAGING: No new imaging. ASSESSMENT AND PLAN: 1. Right upper quadrant abdominal mass suspicious of malignancy with prior history of sigmoid adenocarcinoma in 2017 requiring left colectomy. Current mass is concerning for recurrence of malignancy. I will await further gastroenterology and oncology recommendation about need for colonoscopy, staging, and possibly resection in the future. She currently does not have any clinical features of intestinal obstruction. Continue her on intravenous fluids and a clear liquid diet. 2. Alcohol use disorder and tobacco use disorder. Patient was counseled about not using alcohol. I will keep her on a nicotine patch as needed. She does not have any signs of withdrawal. 3. Disposition. I will continue to monitor the patient inside hospital as I await further recommendation from oncology team. Plan of care was discussed with her and her family. All of their questions have been answered. cc: Lucas Hsu MD
--- NOTE | 2018-10-04 11:52 | EKG Report ---
Test Performed on : 10/04/2018 11:45:25 AM Test Reason : Follow up EKG Blood Pressure : / mmHG Vent. Rate : 063 BPM Atrial Rate : 063 BPM P-R Int : 146 ms QRS Dur : 082 ms QT Int : 400 ms P-R-T Axes : 054 -81 046 degrees QTc Int : 409 ms Normal sinus rhythm. Left axis deviation Inferior infarct (cited on or before 03-OCT-2018) Abnormal ECG When compared with ECG of 03-OCT-2018 13:27, (Unconfirmed) Vent. rate has decreased BY 35 BPM Borderline criteria for Anterior infarct are no longer present Borderline criteria for Anterolateral infarct are no longer present Nonspecific T wave abnormality now evident in Inferior leads Nonspecific T wave abnormality, worse in Lateral leads Confirmed by Zane Pascual MD ([id number]) on 10/05/2018 6:24:52 AM
[2018-10-04] MEDS: D5 LR 1,000 ML IV SCH (12:30)
--- NOTE | 2018-10-04 14:13 | ECHO REPORT ---
ORDER DATE: 10/03/2018 INDICATION FOR THE STUDY: Elevated BNP. FINDINGS: 1. The right atrium appears normal in size. 2. Mild tricuspid regurgitation. RV systolic pressure of 28. 3. Normal RV size and systolic function. 4. No significant pulmonic insufficiency. 5. Normal left atrial size at 2.4 cm. 6. No mitral valve prolapse. Mild mitral regurgitation. 7. Normal LV size, end-diastolic dimension of 3.7. Normal wall thicknesses with a posterior and interventricular septal wall thickness of 0.8 and 1.0 cm respectively. Normal LV systolic function. Estimated EF 60% to 65% with normal wall motion. 8. Aortic valve opens well. No evidence of stenosis or insufficiency. 9. Aorta appears normal in visualized segments. 10. No pericardial effusion seen. 11. No mitral valve prolapse. Mild mitral regurgitation. cc: Villa Gaytan MD
[2018-10-04] MEDS ORDERED: GOLYTELY PO ONE (18:00)
--- NOTE | 2018-10-05 00:49 | GASTROENTEROLOGY CONSULTATION ---
DATE: 10/04/2018 REASON FOR CONSULT: Right upper quadrant intra-abdominal mass. HISTORY OF PRESENT ILLNESS: Ms. Justine Hernandes is a 68-year-old woman with past medical history of rheumatoid arthritis and colonic polyps who presents with 2 weeks of severe, sharp right upper quadrant pain radiating to the right lower quadrant that is worse with movement including cough, bending, or sitting up. She says her pain got progressively worse. She started developing intractable nausea and vomiting and inability to tolerate p.o. She denies any diarrhea, constipation, bright red blood per rectum, or melena. She has lost about 6 pounds in the last 2 weeks. Prior to this, she was in her usual state of health. Of note, the patient reports having a prior partial colectomy for colonic polyps that were "almost cancer." This was done in [address] Manely. She is followed by Dr. Heart. Her last colonoscopy was in June of this year. We do not have a report, but the polyp that was resected was a tubulovillous adenoma. REVIEW OF SYSTEMS: As per HPI, otherwise 12 point review of systems is negative. PAST MEDICAL HISTORY: As per HPI. Also, patient reports hypoglycemia. PAST SURGICAL HISTORY: Partial colectomy, hysterectomy, appendectomy. FAMILY HISTORY: No family history of GI malignancies. SOCIAL HISTORY: She is a smoker. She drinks about 1 to 2 beers per night. No drug use. MEDICATIONS: None. ALLERGIES: None. PHYSICAL EXAMINATION: Vital Signs: Temperature 98 degrees, heart rate 63, respiratory rate 18, blood pressure 149/79, O2 saturation 100% on room air. General: The patient is awake, alert, oriented, no acute distress. HEENT: Sclerae anicteric. Moist mucous membranes. Extraocular motor intact. Neck: Supple. No JVD or lymphadenopathy. Cardiac: Regular rate and rhythm. No murmurs, rubs, or gallops. Lungs: Clear to auscultation bilaterally. Abdomen: Soft, tender to palpation in the right upper quadrant. No rebound or guarding. No ascites. Bowel sounds are present. Extremities: No clubbing, cyanosis, or edema. Neurologic: Nonfocal. LABS: White count of 4.98, hemoglobin 13.2, platelets 269,000. INR 0.89. CMP is unremarkable. UA shows moderate blood and ketones, protein. IMAGIN. Chest x-ray shows compression fracture at L1. 2. CT abdomen and pelvis shows a large mass in a right upper quadrant indicating advanced malignancy, most likely represents colon cancer. The mass measures 9.3 x 8.8 cm and is heterogeneous, primarily peripheral with contrast enhancement. Also noted are surgical suture lines at the sigmoid colon. The liver, gallbladder, spleen, pancreas, adrenals, and kidneys appear normal. There are old compression fractures at T12 and L2. The large irregular mass is centered about the hepatic flexure of the colon. ASSESSMENT AND PLAN: Ms. Justine Hernandes is a 68-year-old woman with past medical history of colonic polyps with high risk features, who presents with 2 weeks of right upper quadrant pain radiating to the left lower quadrant, found to have a large intra- abdominal mass concerning for underlying colonic malignancy. Her vital signs are stable. We will plan for a diagnostic colonoscopy in the morning to obtain a tissue diagnoses. If negative, the patient will likely need to have percutaneous biopsy. Analgesics and antiemetics prn. # Intraabdominal mass # RUQ pain # N/V # Weight loss # History of colonic polyps Thank you for this consult. We will follow with you. Please call with any questions, concerns. LINDA
[2018-10-05] MEDS: D5 LR 1,000 ML IV SCH (07:48)
[2018-10-05] MEDS: ZOFRAN IV PRN ×2 (07:48→11:37)
[2018-10-05] MEDS: MORPHINE IV PRN ×2 (08:01→11:37)
[2018-10-05] MEDS ORDERED: DIPRIVAN 1% ONE (09:07)
[2018-10-05] MEDS ORDERED: XYLOCAINE-MPF 2% ONE (09:08)
--- NOTE | 2018-10-05 09:36 | ENDOSCOPY OPERATIVE NOTE ---
[facility] ENDOSCOPY OPERATIVE NOTE , PATIENT: Justine Hernandes ADM DATE: 10/05/2018 MR #: [id number] : 1950 COLONOSCOPY PROCEDURE REPORT PROCEDURE DATE: 10/05/2018 SURGEON: Scott Umaña MD STATUS: inpatient ENGINEERING TEST MECHANIC: PREOPERATIVE DIAGNOSIS: The patient is a 68 yr old female here for a colonoscopy due to Intraabdomin al mass, r/o colonic etiology. PROCEDURE PERFORMED: Colonoscopy, diagnostic. incomplete MEDICATIONS: Per Anesthesia PREP TYPE: GoLytely
--- NOTE | 2018-10-05 10:25 | Diag Imaging Result Doc PS360 ---
EXAM: CT THORAX W/WO CONTRAST 10/05/2018 HISTORY: R/o mets TECHNIQUE: This exam was performed using automated exposure control, adjustment of mA or kV according to patient size, and/or use of iterative reconstruction technique. COMMENT: There is apical pleural fibrosis bilaterally. There is ill-defined opacity in the right middle lobe which may be due to atelectasis or fibrosis. There is also a suggestion of bronchiectasis in the right middle lobe. There are linear opacities bilaterally in the lower lobes posteriorly which also may be due to fibrosis. There is no definite evidence of metastatic disease. There is no evidence of significant adenopathy. There is a granulomatous calcification adjacent to the esophagus and descending aorta. There is no evidence of abnormal fluid collections. The regional skeleton is intact. IMPRESSION: No evidence of metastatic disease in the chest. Electronically signed by Frederick Cage 10/05/2018 10:23 AM
[2018-10-05 10:34] LABS: IRON SATURATION 15 %; TIBC 200 ug/dL; TOTAL IRON 30 ug/dL (49-151); UNBOUND IRON 170 ug/dL (112-346)
[2018-10-05] MEDS: PRILOSEC PO SCH (12:46)
[2018-10-05] MEDS ORDERED: GOLYTELY PO ONE (14:00)
[2018-10-05] MEDS ORDERED: ATIVAN IV PRN (15:19)
[2018-10-05] MEDS ORDERED: SODIUM CHLORIDE 0.9% INJ PRN (15:34)
--- NOTE | 2018-10-05 15:58 | Diag Imaging Result Doc PS360 ---
EXAM: CHEST-PORTABLE 10/05/2018 HISTORY: NG tube placement TECHNIQUE: AP portable at 1550 COMMENT: There is an NG tube with its tip just within the gastric fundus. There is ill-defined opacity over the left base which appears slightly worse than on 10/03/2018. The inspiration is not as optimal however. IMPRESSION: NG tube just within the stomach. Electronically signed by Frederick Cage 10/05/2018 3:56 PM
--- NOTE | 2018-10-05 16:04 | PROGRESS NOTE ---
DATE: 10/05/2018 INTERVAL HISTORY: Colonoscopy was attempted. However, a bowel preparation was poor so it was aborted. The patient was started on a repeat slow MiraLAX preparation. After the procedure she also got a CT scan of the chest to look for any malignancy or metastatic lesion, which did not find any metastatic lesion. Bone scan is pending. SUBJECTIVE: The patient suddenly started experiencing significant tremors, which she did not before. She is denying feeling chilly. She states she has been persistently vomiting. She has not been able to take GoLYTELY by mouth. VITALS: Temperature 98.1 degrees, pulse 81, respiratory rate 20, blood pressure 180/60. She is saturating 100% on room air. PHYSICAL EXAMINATION: General: Appears cachectic with protein energy malnutrition significant. HEENT: Oral cavity is moist. Lungs: Air entry bilaterally equal no wheeze, rhonchi, crackles. Cardiovascular: S1-S2 are normal. No murmur, rub, or gallop. Abdomen: Soft. Tender in right upper quadrant. Active bowel sounds. Extremity: No lower extremity edema. NEUROLOGIC: She is alert and oriented x3. She is a little tremulous apparently at rest. LABS: No labs today. No new microbiological data. IMAGING: Chest CT suggestive of no evidence of metastatic disease in the chest. ASSESSMENT AND PLAN: 1. Right upper quadrant abdominal mass suspicious of malignancy originating from hepatic flexure of the colon with prior history of sigmoid adenocarcinoma in 2017 requiring left colectomy. NG tube has been ordered to administer GoLYTELY for repeat colonoscopy as today's colonoscopy had to be aborted considering her poor bowel prep. She continues to have nausea and vomiting, likely because of that malignancy pressing over intra-abdominal structures. Continue intravenous fluids. 2. Alcohol use disorder and tobacco use disorder. Patient was counseled about not using alcohol and keep her on nicotine patch. No signs of withdrawal except mild tremor and I would keep her on low dose of benzodiazepines. 3. Disposition I will continue to monitor patient inside the hospital as I await further colonoscopy. Plan of care discussed with her. Her questions have been answered. cc: Lucas Hsu MD
[2018-10-05] MEDS: PHENERGAN IV PRN (16:21)
[2018-10-06] MEDS: PHENERGAN IV PRN ×2 (00:30→20:47)
[2018-10-06] MEDS: MORPHINE IV PRN ×3 (02:24→20:53)
[2018-10-06 07:29] LABS: BASO# 0.03 X1000 (0.0-0.2); BASO% 0.4 % (0.0-0.8); EOS# 0.23 X1000 (0.0-0.7); EOS% 3.4 % (0.0-10.0); HEMATOCRIT 38.2 % (37.0-47.0); HEMOGLOBIN 12.6 g/dL (12.0-16.0); LYMPH# 1.08 X1000 (1.2-3.4); LYMPH% 15.9 % (20.5-51.1); MCH 34.1 PG (27-31); MCV 103.2 FL (81-99); MONO# 0.67 X1000 (0.11-0.59); MONO% 9.8 % (1.7-9.3); NEUT% 70.5 % (42.2-75.2); PLT 240 X1000 (130-400); RDW 13.2 % (11.5-14.5); WBC 6.81 X1000 (4.8-10.8)
[2018-10-06 07:53] LABS: AGAP 7; BUN 3 mg/dL (8-22); CALCIUM 8.8 mg/dL (8.8-10.2); CHLORIDE 99 mmol/L (98-107); COSMO 264; CREATININE 0.5 mg/dL (0.5-0.9); ESTIMATED GFR > 60; GLUCOSE 93 mg/dL (70-104); POTASSIUM 2.9 mmol/L (3.5-5.1); SODIUM 134 mmol/L (136-145); TCO2 28 mmol/L (25-35)
[2018-10-06] MEDS: D5 LR 1,000 ML IV SCH (07:56)
--- NOTE | 2018-10-06 08:50 | HEMO/ONC CONSULTATION ---
DATE: 10/04/2018 ADMITTING PHYSICIAN: Dr. Matt Shepard. REQUESTING PHYSICIAN: Chaka Shepard. We appreciate this consult. CHIEF COMPLAINT: Right upper quadrant abdominal mass. HISTORY OF PRESENT ILLNESS: Ms Hernandes is a pleasant 68-year-old, female with sigmoid adenocarcinoma in 2016, diagnosed by Dr. Heart. The patient underwent colon resection and required no treatment at that time. The patient is followed by Dr. Heart for followup colonoscopy. Patient underwent colonoscopy in June 2018 with removal of polyp in the splenic flexure showing tubulovillous adenoma. The patient was scheduled to have yearly colonoscopies following that finding. The patient reports that 2 weeks prior to admission, she began to have nausea and vomiting for approximately 20 to 30 minutes after eating. She also began to develop right upper quadrant abdominal pain and states that she has lost 25 to 30 pounds in an unspecified amount of time. She states that she has been profoundly weak. CT of the abdomen and pelvis reveals a large mass in the right upper quadrant indicating advanced malignancy. We are consulted secondary to right upper quadrant abdominal mass. PAST MEDICAL HISTORY: 1. Sigmoid adenocarcinoma status post colon resection. 2. Osteoarthritis. 3. Seasonal allergies. PAST SURGICAL HISTORY: 1. Multiple colonoscopies with polypectomies. 2. Sigmoid colon resection in 2017. 3. Hysterectomy. 4. Appendectomy. SOCIAL HISTORY: The patient states that she smokes 2 cigarettes daily. She has been smoking since the age of 13. She also reports that she drinks 2 to 3 beers daily. The patient denies illicit drug use. FAMILY HISTORY: Negative for hematologic or oncologic disease. MEDICATIONS ON ADMISSION: None. ALLERGIES: Penicillin, dextromethorphan, pseudoephedrine, and codeine. REVIEW OF SYSTEMS: A 14 point review of systems was obtained and is negative except for mentioned in the HPI. PHYSICAL EXAMINATION: Ms. Hernandes a pleasant 68-year-old female who appears ill. She is lying supine in bed in no acute distress.Vital Signs: Temperature 98.1 degrees, blood pressure 137/64, heart rate 70, respirations 18, O2 saturation 98% on room air. HEENT: Normocephalic, atraumatic. Mucous membranes pink and moist. Sclerae anicteric. Extraocular movements intact. Neck: Supple. Lungs: Clear to auscultation bilaterally. Chest expansion is equal bilaterally. Cardiovascular: S1, S2 is heard without murmur, rub or gallop. Abdomen: Nondistended. Extremities: Distended. Exceptionally tender to palpation in the right upper quadrant with positive guarding. Bowel sounds are decreased throughout. No rebound is noted. Extremities: Without clubbing, cyanosis, or edema. Dermatologic: No rashes bruises or lesions. Neurologic: The patient is awake, alert, and oriented x3. She has no focal deficit. ASSESSMENT AND PLAN: 1. Large right upper quadrant abdominal mass. We will obtain a CEA at this time. Additionally, we will check iron studies. We will obtain a CT of the chest and bone scan. We will await pathology after colonoscopy with biopsies. Treatment plan will follow. 2. History of sigmoid adenocarcinoma status post partial colectomy. Dr. Heart has been consulted. 3. Tobacco abuse. We will continue to encourage cessation. 4. Osteoarthritis, stable. 5. We will follow along with you and make further recommendations pending outcome. The above reflects the history, exam, assessment and plan of Dr. Olson. Dictated by ANTHONY Cheek for Lonny Olson MD cc: ANTHONY Cheek MD [facility]
[2018-10-06] MEDS ORDERED: DIPRIVAN 1% ONE ×2 (09:03→09:49)
--- NOTE | 2018-10-06 10:22 | ENDOSCOPY OPERATIVE NOTE ---
[facility] ENDOSCOPY OPERATIVE NOTE , PATIENT: Justine Hernandes ADM DATE: 10/03/2018 MR #: [id number] : 1950 COLONOSCOPY PROCEDURE REPORT PROCEDURE DATE: 10/06/2018 SURGEON: Eugene Winston MD STATUS: inpatient COMMERCIAL REAL ESTATE BROKER: Ysabel Hercules and Ethan Pedroza PREOPERATIVE DIAGNOSIS: The patient is a 68 yr old female here for a colonoscopy due to Abnormal CT scan showing Hepatic Flexure Mass. PROCEDURE PERFORMED: Colonoscopy with biopsy Submucosal injection, any substance MEDICATIONS: Per Anesthesia PREP TYPE: GoLytely
[2018-10-06] MEDS: POTASSIUM CHLORIDE 20 MEQ/SWI 20 MEQ/100 ML IVPB IV SCH ×3 (10:54→20:52)
[2018-10-06] MEDS: VENOFER 300 MG in NS 250 ML IV SCH (10:54)
[2018-10-06] MEDS: ZOFRAN IV PRN (10:54)
[2018-10-06] MEDS: PRILOSEC PO SCH (11:23)
[2018-10-06] MEDS ORDERED: MIRALAX PO SCH (12:00)
[2018-10-06] MEDS ORDERED: CHLORASEPTIC SORE THROAT LOZENGE MT PRN (12:23)
--- NOTE | 2018-10-06 12:46 | PROGRESS NOTE ---
DATE: 10/06/2018 INTERVAL HISTORY: Ms. Hardin underwent colonoscopy which had detected more than a 5 cm sessile polyp in the hepatic flexure region. She tolerated the procedure well. Surgical team has been consulted for possible surgical intervention. SUBJECTIVE: The patient is complaining of soreness in the throat. She states occasionally, because of gaseous distention, she experiences chest discomfort which comes and immediately goes away. Her EKG on admission had normal sinus rhythm. She says, in the past, her cardiovascular workup was negative. VITALS: Temperature of 98.1 degrees, pulse 67, respiratory rate 17, blood pressure 130/80, saturating 98% on room air. PHYSICAL EXAMINATION: General: Does not appear in any acute distress. Oral cavity is moist. Lungs: Air entry bilaterally equal. No wheeze, rhonchi, crackles. Cardiovascular: S1, S2 normal. No murmur, rub, or gallop. Abdomen: Soft. Slightly tender in the right upper quadrant and epigastric region. Active bowel sounds. No lower extremity edema. She is alert and oriented x3. LABS: Suggestive of normal hemoglobin, normal platelet count, hypokalemia which is currently being repleted. No new microbiological or imaging data. ASSESSMENT AND PLAN: 1. Hepatic flexure mass suspicious of malignancy, status post colonoscopy and biopsy on October 06. Surgical team has been consulted for possible need for surgery based on biopsy reports. She did have prior history of sigmoid adenocarcinoma in 2017 requiring left side left colectomy. Her CT scan of the chest did not detect any metastatic lesion. Bone scan is pending. Continue clear liquid diet and intravenous fluids. 2. Alcohol abuse: No more signs of withdrawal. She was counselled about quitting alcohol and tobacco. 2. Disposition. Awaiting surgical team evaluation. Plan of care discussed with the patient. All of her questions have been answered. cc: Lucas Hsu MD MTDD
--- NOTE | 2018-10-06 14:09 | GENERAL SURGERY CONSULTATION ---
DATE: 10/06/2018 REASON FOR CONSULTATION: Colon tumor. HISTORY OF PRESENT ILLNESS: This is a 68-year-old female with a past medical history of descending colon cancer resected in 2017, who was undergoing surveillance. She had a colonoscopy a few weeks ago which showed a large polyp near the hepatic flexure. She presented to the emergency room several days ago with progressive right-sided abdominal pain, nausea and vomiting. A CT scan this admission shows a very large right upper quadrant mass which is likely colon cancer. She underwent a colonoscopy today by Dr. Winston, which shows a large mass near the hepatic flexure consistent with colon cancer. Currently she says she has some mild to moderate right- sided abdominal pain, but is not in severe pain right now. She is tolerating clear liquids, status post colonoscopy without vomiting. She did have a good bowel prep last night and had a lot of liquid stool. PAST MEDICAL HISTORY: Hypoglycemia and descending colon cancer. PAST SURGICAL HISTORY: Partial colectomy of the descending colon in 2017, hysterectomy, appendectomy. HOME MEDICATIONS: None. ALLERGIES: Penicillin, doxylamine, codeine, pseudoephedrine, dextromethorphan. SOCIAL HISTORY: She admits to 1 to 2 cigarettes of smoking per day. She also admits to 2 to 3 beers nightly. No illicit drug use. No hard liquor. FAMILY HISTORY: Reviewed and noncontributory. REVIEW OF SYSTEMS: Ten systems reviewed and negative, except as above, and she does report a 5 to 10 pound weight loss recently. PHYSICAL EXAMINATION: Vital Signs: Temperature 98.1 degrees, pulse 67, respirations 17, blood pressure 137/83, O2 saturation 98%. General: Elderly somewhat frail-appearing female in no acute distress. HEENT: Normocephalic, atraumatic. Extraocular muscles intact. Pupils equal, round, reactive to light. Sclerae anicteric. Moist mucous membranes. Hearing grossly normal. No oral lesions. Neck: Supple. No thyromegaly. CV: Regular rate and rhythm. Respiratory: Bilateral breath sounds. No work of breathing. GI: Soft in general, but there is what feels like a firm mass in the right upper quadrant. She is moderately tender in this area. No rebound. She does have a little guarding in the right upper quadrant. She is nondistended. Extremities: No clubbing, cyanosis, or edema. Skin: Warm and dry. No rash. Musculoskeletal: She moves all extremities weakly, but equally. LABORATORY: White blood cell count 6.8, hemoglobin 12.6, hematocrit 38, platelet count 240. Electrolytes reviewed and notable for potassium 2.9, albumin on admission was 4.3, CEA 4.3. Liver function tests 2 days ago were normal. She did have an elevated alkaline phosphatase at 128 on admission. IMAGING: A CT of the chest performed yesterday revealed no evidence of metastatic disease. CT of the abdomen and pelvis, however, revealed a large 9.3 x 8.8 cm mass in the right upper quadrant displacing the gallbladder anteriorly and abutting the distal stomach, duodenum and pancreas, likely representing a colon cancer. ASSESSMENT AND PLAN: A 68-year-old female with colon cancer of the hepatic flexure. She will need an open subtotal colectomy. We are planning this tomorrow. We will keep her on clear liquids today. I have discussed the risks and benefits with her including bleeding, infection, injury to surrounding organs such as the intestines, liver, ureter, etc., anastomotic leak, incisional hernia, perioperative cardiovascular and pulmonary complications, even . She understands and agrees to proceed. cc: Liu Lakhani MD
[2018-10-06] MEDS ORDERED: KLOR-CON PO ONE (14:15)
--- NOTE | 2018-10-06 15:29 | Diag Imaging Result Doc PS360 ---
EXAM: BONE SCAN, TOTAL BODY HISTORY: R/o mets TECHNIQUE: Nuclear medicine whole body bone scan COMPARISON: None. FINDINGS: 26.7 mCi technetium MDP administered. There is symmetric activity in the upper and lower extremities. Normal uptake in the skull, spine, chest, and pelvis. IMPRESSION: No bony metastases. Electronically signed by Samm Morgan 10/06/2018 3:26 PM
[2018-10-06] MEDS: NEOMYCIN PO SCH ×3 (15:48→20:51)
[2018-10-06] MEDS: ERYTHROMYCIN BASE PO SCH ×3 (15:49→20:52)
[2018-10-07] MEDS: POTASSIUM CHLORIDE 20 MEQ/SWI 20 MEQ/100 ML IVPB IV SCH (01:21)
[2018-10-07] MEDS: D5 LR 1,000 ML IV SCH (06:20)
[2018-10-07] MEDS: PHENERGAN IV PRN (07:19)
[2018-10-07 07:37] LABS: HEMATOCRIT 38.9 % (37.0-47.0); HEMOGLOBIN 12.6 g/dL (12.0-16.0); MCH 34.7 PG (27-31); MCHC 32.4 g/dL (33-37); MCV 107.2 FL (81-99); MPV 10.4 FL (7.4-10.4); NEUT% 76.8 % (42.2-75.2); PLT 232 X1000 (130-400); RBC 3.63 XMIL (4.2-5.4); RDW 13.2 % (11.5-14.5); WBC 7.01 X1000 (4.8-10.8)
[2018-10-07 07:38] LABS: BASO# 0.02 X1000 (0.0-0.2); BASO% 0.3 % (0.0-0.8); EOS# 0.25 X1000 (0.0-0.7); EOS% 3.6 % (0.0-10.0); LYMPH# 0.68 X1000 (1.2-3.4); LYMPH% 9.7 % (20.5-51.1); MONO# 0.67 X1000 (0.11-0.59); MONO% 9.6 % (1.7-9.3); NEUT# 5.39 X1000 (1.4-6.5)
[2018-10-07 08:24] LABS: AGAP 11; BUN 2 mg/dL (8-22); CHLORIDE 104 mmol/L (98-107); COSMO 269; CREATININE 0.4 mg/dL (0.5-0.9); ESTIMATED GFR > 60; GLUCOSE 117 mg/dL (70-104); SODIUM 136 mmol/L (136-145); TCO2 21 mmol/L (25-35)
[2018-10-07 08:25] LABS: POTASSIUM 4.1 mmol/L (3.5-5.1)
[2018-10-07] MEDS: VENOFER 300 MG in NS 250 ML IV SCH (10:10)
[2018-10-07] MEDS: PRILOSEC PO SCH (10:13)
--- NOTE | 2018-10-07 10:29 | GENERAL SURGERY PROGRESS NOTE ---
DATE: 10/07/2018 SUBJECTIVE: The patient feels okay this morning. She has had some nausea. OBJECTIVE: She is afebrile. Vital signs are stable.General: She is awake, alert, oriented x3. No acute distress. CV: Regular rate and rhythm. Respiratory: No work of breathing. GI: Soft. She is focally tender in the right upper quadrant. LABORATORY: CBC and metabolic profile reviewed and unremarkable. ASSESSMENT AND PLAN: A 68-year-old female with right upper quadrant colon mass. The plan is exploratory laparotomy with subtotal or total colectomy today. I have discussed this with her and her family. They are in agreement. cc: Liu Lakhani MD
[2018-10-07] MEDS ORDERED: FLAGYL 500 MG/NS 500 MG/100 ML IVPB IV ONE (11:00)
[2018-10-07] MEDS ORDERED: LEVAQUIN 500 MG/D5W 500 MG/100 ML IVPB IV ONE (11:00)
--- NOTE | 2018-10-07 11:25 | PROVIDER PROGRESS NOTE ---
Progress Note S: No acute overnight events. Patient had some NBNB emesis and diarrhea. No rectal bleeding or melena. +abdominal discomfort. NPO for partial colectomy today. O: Last Vital Signs Temp 97.9 F 10/07/18 07:50 Pulse 71 10/07/18 07:50 Resp 18 10/07/18 07:50 BP 149/93 10/07/18 07:50 Pulse Ox 99 10/07/18 07:50 Height 5 ft 4 in Weight 100 lb 1 oz GEN: awake, alert, NAD HEENT: anicteric, MMM NECK: supple, no jvd PULM: CTAB no wheezing ABD: soft, ND, TTP in mid-abdomen, BS present, no rebound or guarding EXT: no cce LABS: 10/07/18 10/07/18 06:14 06:14 WBC 7.01 Hgb 12.6 Plt Count 232 Sodium 136 Potassium 4.1 D Chloride 104 Carbon Dioxide 21 L BUN 2 L Creatinine 0.4 L Glucose 117 H CEA 4.3 IMAGING: EXAM: CT THORAX W/WO CONTRAST 10/05/2018 HISTORY: R/o mets TECHNIQUE: This exam was performed using automated exposure control, adjustment of mA or kV according to patient size, and/or use of iterative reconstruction technique. COMMENT: There is apical pleural fibrosis bilaterally. There is ill-defined opacity in the right middle lobe which may be due to atelectasis or fibrosis. There is also a suggestion of bronchiectasis in the right middle lobe. There are linear opacities bilaterally in the lower lobes posteriorly which also may be due to fibrosis. There is no definite evidence of metastatic disease. There is no evidence of significant adenopathy. There is a granulomatous calcification adjacent to the esophagus and descending aorta. There is no evidence of abnormal fluid collections. The regional skeleton is intact. IMPRESSION: No evidence of metastatic disease in the chest. EXAM: BONE SCAN, TOTAL BODY 10/05/2018 HISTORY: R/o mets TECHNIQUE: Nuclear medicine whole body bone scan COMPARISON: None. FINDINGS: 26.7 mCi technetium MDP administered. There is symmetric activity in the upper and lower extremities. Normal uptake in the skull, spine, chest, and pelvis. IMPRESSION: No bony metastases COLONOSCOPY 10/06/2018 POSTOPERATIVE DIAGNOSIS: 1. Medium sized internal Grade II hemorrhoids 2. Sessile polyp measuring > 50 mm in size was found at the hepatic flexure; multiple biopsies were performed using cold forceps; Injection (tattooing) was performed 3. Tortuous colon A/P: Ms. Justine Hernandes is a 68-year-old woman who presented with RUQ abdominal pain found to have large colonic mass at the hepatic flexure on colonoscopy (biopsies pending) concerning for CRC. Staging CT negative for mets. Plan for surgical resection with staging today. CEA elevated. # Colonic mass: NPO for resection today per surgery team # RUQ pain: from above; analgesics prn # N/V: antiemetics prn # Weight loss: from mass Will sign off. Please call with questions
[2018-10-07] MEDS ORDERED: MARCAINE 0.25% ONE (11:39)
[2018-10-07] MEDS ORDERED: EXPAREL 1.3% ONE (11:40)
[2018-10-07] MEDS ORDERED: SODIUM CHLORIDE 0.9% 10 ML ONE (11:40)
[2018-10-07] MEDS ORDERED: DIPRIVAN 1% ONE (11:43)
[2018-10-07] MEDS ORDERED: FENTANYL ONE (11:43)
[2018-10-07] MEDS ORDERED: SODIUM CHLORIDE 0.9% 20 ML ONE (12:33)
[2018-10-07] MEDS ORDERED: NEO-SYNEPHRINE ONE (12:33)
[2018-10-07 12:40] LABS: URINE SOURCE CATH
[2018-10-07 12:43] LABS: BILIRUBIN URINE NEGATIVE (NEGATIVE); BLOOD URINE NEGATIVE (NEGATIVE); COLOR YELLOW; GLUCOSE URINE NEGATIVE (NEGATIVE); KETONE URINE NEGATIVE (NEGATIVE); LEUKOCYTES URINE NEGATIVE (NEGATIVE); NITRITE URINE NEGATIVE (NEGATIVE); PH URINE 8.5; PROTEIN URINE NEGATIVE (NEGATIVE); SP GRAVITY URINE 1.009; TURBIDITY URINE CLEAR (CLEAR); UR EPITHELIAL CELLS <10 /HPF (<10); URINE BACTERIA NEGATIVE /HPF; URINE RBC <10 /HPF (<10); URINE WBC <10 /HPF (<10); UROBILINOGEN URINE NORMAL (NORMAL)
[2018-10-07] MEDS ORDERED: ZOFRAN ONE (12:55)
[2018-10-07] MEDS ORDERED: NEOSTIGMINE ONE (12:55)
[2018-10-07] MEDS ORDERED: DECADRON ONE (12:55)
--- NOTE | 2018-10-07 12:57 | PROGRESS NOTE ---
DATE: 10/07/2018 INTERVAL HISTORY: No acute events overnight. The patient states she is feeling uncomfortable in the stomach. She is scheduled to undergo surgery today. She denies any new complaints. I discussed postsurgical course, possible complications, and she understood it. OBJECTIVE: Vital Signs: Currently, temperature 97.9 degrees, pulse 71, respiratory rate 18, blood pressure 150/90, saturating 99% room air. General: Has severe protein energy malnutrition, not in acute distress. HEENT: Oral cavity is dry. Lungs: Air entry bilaterally equal. No wheeze or crackles. Cardiovascular: S1, S2 normal. No murmur or gallop. Abdomen: Soft. Tenderness in epigastric right upper quadrant region. Active bowel sounds. Extremities: No lower extremity edema. Neurologic: She is alert and oriented x3. LABORATORY DATA: Suggestive of normal hemoglobin, normal platelet count, normal electrolytes. Microbiology: No data. IMAGING: No data. ASSESSMENT AND PLAN: 1. Hepatic flexure mass suspicious of malignancy, status post colonoscopy and biopsy on 10/06/2018, pending results. The patient is likely to undergo laparotomy with subtotal or total colectomy today. 2. Alcohol and tobacco abuse. Patient was counseled about stopping use of these substances. She does not have any signs of withdrawal. 3. Disposition pending surgery. In the future, she may need rehab. Plan of care discussed with her. All questions have been answered. cc: Lucas Hsu MD
[2018-10-07] MEDS ORDERED: VENTOLIN HFA ONE (13:38)
[2018-10-07] MEDS ORDERED: STERILE WATER INJ. ONE ×2 (14:03→14:20)
[2018-10-07] MEDS ORDERED: ROBINUL ONE (14:03)
[2018-10-07] MEDS ORDERED: QUELICIN (DOSE) ONE (14:03)
[2018-10-07] MEDS ORDERED: XYLOCAINE-MPF 2% ONE (14:03)
[2018-10-07] MEDS ORDERED: NORCURON ONE ×2 (14:03→14:20)
[2018-10-07] MEDS ORDERED: ALBUMIN 25% ONE (15:58)
[2018-10-07] MEDS ORDERED: NS 1,000 ML ONE (17:51)
[2018-10-07] MEDS ORDERED: DILAUDID ONE (18:33)
[2018-10-07] MEDS: PERIDEX MT SCH (21:05)
[2018-10-07] MEDS: PROTONIX IV SCH (21:05)
[2018-10-07] MEDS: OFIRMEV 1000 MG/ISOTONIC SOLN 1,000 MG/100 ML BOTTLE IV SCH (21:05)
[2018-10-07] MEDS: FLAGYL 500 MG/NS 500 MG/100 ML IVPB IV SCH (21:06)
[2018-10-07] MEDS: NS 1,000 ML IV SCH (21:26)
[2018-10-07] MEDS: MORPHINE IV PRN (22:47)
[2018-10-08] MEDS: OFIRMEV 1000 MG/ISOTONIC SOLN 1,000 MG/100 ML BOTTLE IV SCH ×3 (01:08→13:31)
[2018-10-08] MEDS: LABETALOL IV PRN (02:47)
[2018-10-08] MEDS: FLAGYL 500 MG/NS 500 MG/100 ML IVPB IV SCH (03:00)
[2018-10-08] MEDS: MORPHINE IV PRN ×4 (05:59→21:51)
[2018-10-08] MEDS: NS 1,000 ML IV SCH ×2 (06:00→15:30)
[2018-10-08 06:47] LABS: EOS# 0.01 X1000 (0.0-0.7); EOS% 0.1 % (0.0-10.0); HEMATOCRIT 32.1 % (37.0-47.0); HEMOGLOBIN 10.6 g/dL (12.0-16.0); IMM GRAN# 0.02 X1000 (0.0-0.04); IMM GRAN% 0.3 % (0.0-0.5); LYMPH# 0.29 X1000 (1.2-3.4); MCV 102.9 FL (81-99); MONO# 0.58 X1000 (0.11-0.59); MONO% 8.1 % (1.7-9.3); MPV 10.4 FL (7.4-10.4); NEUT% 87.5 % (42.2-75.2); PLT 247 X1000 (130-400); RBC 3.12 XMIL (4.2-5.4); RDW 12.6 % (11.5-14.5)
[2018-10-08 07:09] LABS: AGAP 9; ALB/GLOB RATIO 1.2; ALBUMIN 2.5 g/dL (3.5-5.0); ALKALINE PHOSPHATASE 47 U/L (32-104); BANDS 4 % (0-1); BUN 5 mg/dL (8-22); CALCIUM 7.4 mg/dL (8.8-10.2); CHLORIDE 106 mmol/L (98-107); COSMO 276; CREATININE 0.4 mg/dL (0.5-0.9); ESTIMATED GFR > 60; GLUCOSE 154 mg/dL (70-104); GOT 25 U/L (10-30); GPT 15 U/L (10-36); LYMPHS 13 % (21-51); MONO 5 % (1-9); SEGS 78 % (42-75); SODIUM 138 mmol/L (136-145); TCO2 23 mmol/L (25-35); TOTAL BILIRUBIN 0.29 mg/dL (0.20-1.00); TOTAL PROTEIN 4.6 g/dL (6.3-8.3)
--- NOTE | 2018-10-08 08:07 | OPERATIVE NOTE ---
PROCEDURE DATE: 10/07/2018 PREOPERATIVE DIAGNOSIS: Right upper quadrant abdominal mass. POSTOPERATIVE DIAGNOSIS: Right upper quadrant abdominal mass. PROCEDURE: 1. Whipple. 2. Partial colectomy with colocolonic anastomosis. SURGEON: Dr. Liu Lakhani. TOOL HARDENER: Dr. Lauri Yu. SECOND LAW ENFORCEMENT OFFICER: Dr. Sylvester Field. THIRD LAW ENFORCEMENT OFFICER: Oralia Steve, MS 3. ANESTHESIA: General ESTIMATED BLOOD LOSS: 300 mL. COMPLICATIONS: None apparent. SPECIMENS: Distal stomach, gallbladder, head of the pancreas, duodenum, hepatic flexure and a portion of the transverse colon. DRAINS: Two #19 José Luis. FINDINGS: The patient had a very large softball size mass that was intimately involved with the hepatic flexure and proximal transverse colon, duodenum, head of the pancreas and gallbladder. It could not be from these structures. Interestingly, the right side of the colon was not obstructed. There was no evidence of metastases to the liver or omentum. TECHNIQUE: The patient was brought to the operating room and placed supine on the table. General anesthesia was induced. She was prepped and draped in the usual sterile fashion. A generous incision was made from the xiphoid to below the umbilicus with a knife, and carried down through the tissue sharply to the fascia. The fascia was opened with cautery and we entered the peritoneal cavity bluntly with finger dissection. The fascia and peritoneum were then incised with the cautery throughout the length of the incision safely protecting the underlying bowel. I encountered the large right upper quadrant mass quickly and explored the liver and omentum for any signs of metastases. Once this was clear, we proceeded with mobilizing the right colon. Dr. Field was present with during the beginning of the case and assisted with the initial dissection and exposure. Dr. Yu joined not too long after that and was very helpful with the critical aspects of exposing the anatomy, resecting the above specimens and the reconstruction. We incised the white line of Toldt from the liver down to the cecum, and then came around the cecum and terminal ileum, and then a Cattel-Braasch type maneuver, continued up toward the ligament of Treitz to mobilize the right colon and expose more of the retroperitoneum. I begin a Tiana maneuver, but this was made difficult due to the adherence of the mass to the gallbladder and duodenum. I then began to dissect the gallbladder off the liver in a dome-down fashion all the way down to the cystic duct and cystic artery, which were the only 2 structures entering the gallbladder. We passed umbilical tape around them. I then developed the plane between the superior mesenteric vein and portal vein posterior to the pancreas, and this was reassuring that we felt this mass could be resectable with a Whipple procedure. I then dissected out the common bile duct, common hepatic artery and gastroduodenal artery, and at this point we decided to proceed with the resection. I transected the colon proximally and distally with a linear MAXIMO stapler. I placed a clip on the cystic duct and cystic artery proximally and divided them distally. I divided the common bile duct just proximal to the junction of the cystic duct. I placed a bulldog on the proximal common bile duct. I then divided the antrum with a linear MAXIMO stapler. We then ligated the gastroduodenal artery proximally and distally with 2-0 silk and divided it. I placed a [id number] 3-0 silk on the staying inside of the superior and inferior border of the pancreas, and then divided the pancreas cautery with my finger between the pancreas and the SMV and portal vein. The pancreatic duct was easily identified. I then continued the Tiana maneuver freeing up the duodenum off the retroperitoneum. Venous and arterial branches between the pancreas and duodenum with the SMV, portal vein, aorta, and inferior vena cava were divided between clips, and using the LigaSure we also divided a portion of the uncinate process leaving it inside. The jejunum was divided approximately 10 cm distal to the ligament of Treitz with a linear stapler. I then completed the resection by dividing the colonic mesentery with the LigaSure device while preserving the middle colic artery and vein. I passed this specimen off the field. The stapled end of jejunum was then brought up alongside the cut end of the pancreas, the stapled end of the stomach and the bile duct. We began the reconstruction first with the pancreaticojejunostomy. A posterior row of 3-0 silk interrupted sutures were used to approximate the pancreas with the serosa of the jejunum. I made a jejunotomy with cautery. I then sewed the duct to the mucosa using four interrupted 4-0 PDS sutures at 12 o'clock, 3 o'clock, 6 o'clock and 9 o'clock. I then approximated the anterior aspect of the pancreas and jejunum with another row of interrupted 3-0 silk suture. Of note, I did use a 5-Mosotho pediatric feeding tube and placed it in the pancreatic duct and the jejunotomy as a stent. I then turned my attention to the choledochojejunostomy. A jejunotomy was performed with cautery to about the size of the bile duct lumen. The bulldog clamp was removed off the bile duct. I then approximated the bile duct to the jejunum with interrupted 4-0 Vicryl at 3 o'clock, 6 o'clock, 9 o'clock and 12 o'clock, and then I completed it with 4 more sutures in between these quadrant sutures. Towards the end of the case as we were getting ready to close, there was a small amount of bile leaking from this anastomosis, and I over-sewed two leaking points with interrupted 4-0 Vicryl. This appeared to stop the leak. I then turned my attention to the gastrojejunostomy. The jejunum was laying beside the stapled end of the stomach. We performed a hand sewn, two-layered, end-to-side anastomosis. The 3-0 silk sutures were placed on superior and inferior border of the stomach and jejunum to bring them into an end-to-side approximation, and then a posterior row of 3-0 silk seromuscular Lembert sutures were placed in an interrupted fashion. A jejunotomy was performed with cautery longitudinally, and the staple line off the stomach was removed with cautery. A running locking 3-0 Vicryl inner layer was begun and converted to a Mireya suture anteriorly. The anterior suture line was then reinforced with a second row of interrupted 3-0 silk seromuscular Lembert sutures. The anastomosis was widely patent; it did not appear to leak and had good blood flow. I examined the remaining portion of the cecum and the distal transverse colon and sigmoid; they appeared to be viable. There was a palpable pulse in the middle colic artery, as well as the ileocolic artery, and there appeared to be peristalsis. I felt that the remaining colon was viable and prepared a [id number] stapled anastomosis. Then 3-0 silk stay sutures were placed proximally and distally. We aligned the tenia [id number] and then made a colotomy on either side in the tinea with cautery. A linear 60 mm blue stapler was then placed and fired creating an anastomosis. The common enterotomy was then closed with a running 2-0 Vicryl in two directions with the second row in a seromuscular type stitch. This anastomosis was also felt to be patent and watertight. I then washed out the abdomen with warm saline and suctioned out the old blood. There were no signs of any ongoing bleeding. We noticed a small amount of leakage at the choledochojejunostomy and repaired it as described earlier. I then brought in 2 José Luis drains in the right and left upper quadrants through stab incisions and aligned them beside the pancreaticojejunostomy, gastrojejunostomy, and choledochojejunostomy, as well as along the right pericolic gutter and above the liver. These were anchored to the skin with nylon suture. All laparotomy pads were counted and removed from the abdomen. There were no instruments left in the abdomen. The sponge and instrument counts were checked twice. I examined the abdomen. I should also point out that prior to closing, the coding manager passed an NG tube, and we assured it was positioned in the stomach proximal to the anastomosis. I then closed the fascia with a running #1 looped Maxon suture in 2 directions. The skin was closed with skin clips. There were no apparent complications. She was awakened in fair condition and transferred to the recovery room and then to the ICU. cc: Liu Lakhani MD [facility]
[2018-10-08] MEDS: PERIDEX MT SCH ×3 (08:14→21:53)
--- NOTE | 2018-10-08 08:42 | PROGRESS NOTE ---
DATE: 10/08/2018 INTERVAL HISTORY: No acute events overnight. She underwent surgical removal of the mass, the details of which are not available to me at the moment. However, her colonic mass was removed as per the nursing team. The patient states her pain is reasonably controlled. I discussed with her about postsurgical complication. OBJECTIVE: Vital signs: Temperature 97.9 degrees, pulse 64, respiratory rate 15, blood pressure 140/70, saturating 96% on room air. General: Cachectic. Not in any acute distress. She has a nasogastric tube, urine catheter, intra-abdominal drain. Lungs: Air entry bilaterally equal. No wheeze, rhonchi, crackles. Cardiovascular: S1, S2 normal. No murmur, rub, or gallop. Abdomen: Soft. There is a midline laparotomy scar and 2 intra-abdominal drains and they are draining minimal output. She has generalized abdominal tenderness. Extremities: No lower extremity edema. She is alert. She was reoriented to the situation. Otherwise, she is oriented to place and person. LABORATORY DATA: Suggestive of anemia, likely anemia due to acute blood loss. Normal kidney function and hypoalbuminemia. No new microbiology. No new imaging. ASSESSMENT AND PLAN: 1. Hepatic flexure colonic mass suspicious of colon adenocarcinoma status post colonoscopy and biopsy on October 06 and surgical removal on October 07. Follow up final biopsy results. Continue intravenous pain management as per Surgical team as well as diet management as per Surgical team. I will keep her on intravenous fluids until we start oral. 2. Alcohol and tobacco abuse. The patient was counseled about stopping use of these substances in the past and no signs of withdrawal. 3. Disposition. We will continue to monitor patient in ICU. Plan of care discussed with her. All questions have been answered. I will begin DVT prophylaxis after surgery recs. cc: Lucas Hsu MD [facility]
--- NOTE | 2018-10-08 08:49 | GENERAL SURGERY PROGRESS NOTE ---
DATE: 10/08/2018 SUBJECTIVE: The patient complains of soreness in her abdomen. She denies nausea, vomiting, chest pain or shortness of breath. OBJECTIVE: Vital Signs: She is afebrile, pulse 64, O2 saturation 96%, respiratory rate 16, blood pressure 140/71. Urine output just over 30 mL an hour over the last shift. EM drain output 70 and 60 in #1 and #2 respectively. The character is serosanguineous, no bile or succus seen. General: She is awake and alert. She seems oriented. No confusion. No acute distress. CV: Regular rate and rhythm. Respiratory: Clear bilateral breath sounds. No increased work of breathing. Gastrointestinal: Soft, nondistended appropriately tender. Incisional dressings are clean and dry. EM drains are serosanguineous. LABORATORY: White blood cell count 7, hemoglobin 10.6, hematocrit 32, platelet count 247,000. BUN 5, creatinine 0.4, otherwise electrolytes are unremarkable. ASSESSMENT AND PLAN: A 68-year-old female postoperative day 1 from Whipple and partial colectomy. Overall, she is hemodynamically stable. Her lab work is stable. We will allow her to begin moving some with assistance out of bed and allow her to have ice chips for comfort. Continue her crystalloid fluids at the same rate. Start Lovenox for DVT prophylaxis. Provide antiemetics and pain medicine as needed. Consult physical therapy and consider transfer out of the ICU tomorrow if stable. We may need to consider Clinimix or TPN in the next couple of days if she is not able to begin a diet, which I will make that determination over the weekend. cc: Liu Lakhani MD
[2018-10-08] MEDS: LOVENOX SUBQ SCH (09:06)
[2018-10-08] MEDS: PROTONIX IV SCH (21:52)
[2018-10-09] MEDS: NS 1,000 ML IV SCH (01:52)
[2018-10-09 06:23] LABS: BASO# 0.01 X1000 (0.0-0.2); BASO% 0.1 % (0.0-0.8); EOS# 0.03 X1000 (0.0-0.7); EOS% 0.4 % (0.0-10.0); HEMATOCRIT 29.3 % (37.0-47.0); HEMOGLOBIN 9.6 g/dL (12.0-16.0); IMM GRAN# 0.02 X1000 (0.0-0.04); IMM GRAN% 0.2 % (0.0-0.5); LYMPH# 0.59 X1000 (1.2-3.4); LYMPH% 7.2 % (20.5-51.1); MCH 33.6 PG (27-31); MCHC 32.8 g/dL (33-37); MCV 102.4 FL (81-99); MONO# 0.66 X1000 (0.11-0.59); MPV 9.6 FL (7.4-10.4); NEUT# 6.91 X1000 (1.4-6.5); NEUT% 84.1 % (42.2-75.2); PLT 258 X1000 (130-400); RBC 2.86 XMIL (4.2-5.4); RDW 12.5 % (11.5-14.5); WBC 8.22 X1000 (4.8-10.8)
[2018-10-09 07:01] LABS: AGAP 7; BUN 7 mg/dL (8-22); CALCIUM 7.6 mg/dL (8.8-10.2); CHLORIDE 104 mmol/L (98-107); COSMO 262; CREATININE 0.4 mg/dL (0.5-0.9); ESTIMATED GFR > 60; GLUCOSE 81 mg/dL (70-104); MAGNESIUM 1.5 mg/dL (1.5-2.7); PHOSPHORUS 1.8 mg/dL (2.7-4.5); POTASSIUM 3.2 mmol/L (3.5-5.1); SODIUM 132 mmol/L (136-145); TCO2 21 mmol/L (25-35)
[2018-10-09] MEDS ORDERED: KLOR-CON PO SCH (07:15)
--- NOTE | 2018-10-09 07:45 | GENERAL SURGERY PROGRESS NOTE ---
DATE: 10/09/2018 SUBJECTIVE: The patient complains of soreness in her abdomen and a little nausea. She was able to sit up on the side of the bed yesterday with a lot of assistance. OBJECTIVE: Vital Signs: She is afebrile, pulse is in the 70s to 80s, systolic blood pressure 116 to 150s, O2 saturation 93% to 97% percent. Urine output 900 mL. EM drain #1 shows 315, drain #2 shows 45. They are serosanguineous. No bile. NG tube with scant output. General: She is awake, alert, and oriented x3. No acute distress. CV: Regular rate and rhythm. Respiratory: Clear bilateral breath sounds. Her incentive spirometry effort is poor. She is pulling barely 500 mL. GI: Soft, nondistended, appropriately tender. Incisional dressing is clean and dry. Hypoactive bowel sounds. Extremities: No clubbing, cyanosis, or edema. LABORATORY DATA: CBC and metabolic profile were reviewed and notable only for potassium 3.2 and phosphorus 1.8. ASSESSMENT AND PLAN: A 68-year-old female, postoperative day 2, Whipple and partial colectomy for right upper quadrant mass. She is hemodynamically stable. We will attempt to mobilize her more today, hopefully up to a chair. Physical Therapy has been consulted. She will continue the nasogastric tube for now. I am going to go ahead and start Clinimix on her while we await return of her bowel function. cc: Liu Lakhani MD
[2018-10-09] MEDS: LIPOSYN 20% 500 ML IV SCH (07:56)
[2018-10-09] MEDS: MAGNESIUM SULFATE 2 GM/S.W.I. 2 GM/50 ML IVPB IV SCH ×2 (07:56→11:44)
[2018-10-09] MEDS: CLINIMIX E 4.25%-5% SOLUTION 1,000 ML IV SCH ×2 (07:56→20:43)
[2018-10-09] MEDS: LOVENOX SUBQ SCH (07:57)
[2018-10-09] MEDS: MORPHINE IV PRN ×4 (08:11→22:10)
[2018-10-09] MEDS: POTASSIUM CHLORIDE 20% LIQUID PO SCH ×2 (08:12→11:34)
[2018-10-09] MEDS: ZOFRAN IV PRN (08:17)
[2018-10-09] MEDS: PERIDEX MT SCH ×2 (08:58→20:39)
--- NOTE | 2018-10-09 09:22 | PROGRESS NOTE ---
DATE: 10/09/2018 INTERVAL HISTORY: No acute events overnight. SUBJECTIVE: She is complaining of abdominal soreness. No other symptoms. She says her mouth is dry, wants to try some ice chips. OBJECTIVE: Vital Signs: Temperature 99.4 degrees, pulse 79, respiratory rate 16, blood pressure 150/80, she is saturating 96% on room air. General: Does not appear in any acute distress. She has nasogastric tube under suction, which brings about some blood and mostly bile, intra-abdominal drains, and urine catheter. HEENT: Oral cavity is dry. Lungs: Air entry bilaterally equal. No wheeze, rhonchi, crackles. Cardiovascular: S1, S2 normal. No murmur or gallop. Abdomen: Soft. No bowel sounds. Two intra-abdominal drains, which are draining serosanguineous blood mixed secretions. Genitourinary: Urine catheter. Neurologic: She is alert and oriented x3. LABORATORY DATA: Labs suggestive of macrocytic anemia due to acute blood loss, hyponatremia, hypokalemia, hypomagnesemia, and low phosphorus. MICROBIOLOGY: No data. IMAGING: No new data. ASSESSMENT AND PLAN: Hepatic flexure colonic mass suspicious of colon adenocarcinoma, status post colonoscopy and biopsy on 10/06/2018 and Whipple's procedure and partial colectomy on 10/07/2018. Continue nasogastric tube, intra-abdominal drain management as per surgical team. Continue intravenous fluids, and replete electrolytes. Diet as per surgical team recommendation. Continue enoxaparin for deep venous thrombosis prophylaxis, and she has been started on Clinimix and fat emulsions as per Surgery recommendation. Continue pantoprazole for gastrointestinal prophylaxis. DISPOSITION: I will continue to monitor the patient in ICU. Plan of care discussed with the patient, and her questions have been answered. cc: Lucas Hsu MD
[2018-10-09] MEDS: PROTONIX IV SCH (20:42)
[2018-10-10] MEDS: CLINIMIX E 4.25%-5% SOLUTION 1,000 ML IV SCH ×2 (04:03→17:01)
[2018-10-10] MEDS: LABETALOL IV PRN (04:04)
[2018-10-10] MEDS: MORPHINE IV PRN ×5 (04:25→22:05)
[2018-10-10 07:06] LABS: AGAP 7; BUN 8 mg/dL (8-22); CALCIUM 7.6 mg/dL (8.8-10.2); CHLORIDE 100 mmol/L (98-107); COSMO 263; CREATININE 0.3 mg/dL (0.5-0.9); ESTIMATED GFR > 60; GLUCOSE 140 mg/dL (70-104); POTASSIUM 3.7 mmol/L (3.5-5.1); SODIUM 131 mmol/L (136-145); TCO2 24 mmol/L (25-35)
[2018-10-10] MEDS: LIPOSYN 20% 500 ML IV SCH (08:26)
[2018-10-10] MEDS: LOVENOX SUBQ SCH (08:26)
--- NOTE | 2018-10-10 08:31 | Diag Imaging Result Doc PS360 ---
EXAM: CHEST-PORTABLE INDICATION: Cough. Rule out post op pneumonia TECHNIQUE: One view COMPARISON: 10/05/2018 FINDINGS: The NG tube has been advanced and the tip now lies well below the diaphragm and assumed to be in the lumen of the stomach. There is mild subsegmental atelectasis at the lung bases, more prominent on the left. The lungs are grossly clear, otherwise. There is no discrete pleural fluid collection or pneumothorax. The cardiomediastinal silhouette and central vasculature are grossly unremarkable. IMPRESSION: Mild bibasilar subsegmental atelectasis, more prominent on the left. Electronically signed by Avel Wallis 10/10/2018 8:28 AM
--- NOTE | 2018-10-10 08:34 | PROGRESS NOTE ---
DATE: 10/10/2018 HOSPITAL COURSE SUMMARY: Ms. Hernandes is a 68-year-old, lady with a past medical history of sigmoid adenocarcinoma requiring a left colectomy in 2016, who initially presented with nausea, vomiting, right upper quadrant abdominal pain, and failure to thrive, and was found to have a right hepatic flexure mass and underwent colonoscopy and biopsy, and later on surgical resection and Whipple procedure on October 08. INTERVAL HISTORY: Patient complains of a cough without expectoration, which is making her abdominal pain worse. She also stated that she has been passing gas and she is hungry. She denies any chest pain or shortness of breath. VITALS: Temperature 98.3 degrees, pulse 75, respiratory rate 16, blood pressure 160/80. She is saturating 97% on room air. PHYSICAL EXAMINATION: Cachectic, severe protein energy malnutrition with temporal wasting. Not in any acute distress. Oral cavity is dry. Lungs: Air entry bilaterally equal. No wheeze, rhonchi, crackles. Cardiovascular: S1, S2 normal. No murmur, rub, or gallop. Abdomen: Soft. There is a midline laparotomy scar. Mildly tender. Active bowel sounds. She has 2 intra- abdominal drains as well as a nasogastric tube under suction, draining bile. Nasogastric tube is draining bile. Intra-abdominal drain has bloody serosanguineous secretion. No lower extremity edema. She has a urine catheter. LABS: No CBC today. BMP suggestive of hyponatremia, resolution of hypokalemia, normal kidney function. Microbiology noted. Chest x-ray is pending. ASSESSMENT AND PLAN: 1. Hepatic flexure colon mass suspicious of colon adenocarcinoma, status post colonoscopy and biopsy on October 06, and Whipple procedure and partial colectomy on October 07. Continue nasogastric and intra-abdominal drain management as per surgical team. The patient has bowel sounds but has not been able to come out of bed and sit in the chair. Appreciate surgery recommendation about diet management. Continue intravenous TPN. 2. Others. Continue enoxaparin for deep venous thrombosis prophylaxis and chlorhexidine for pneumonia prophylaxis. Continue intravenous Clinimix until her oral intake becomes adequate. 3. Continue pantoprazole for stress ulcer prophylaxis. 4. Cough. I will follow up with chest x-ray to rule out postoperative pneumonia. 5. Disposition. Awaiting surgery recommendation. Based on that, I will consider transferring her to cardiac telemetry unit in the next 24 hours or so. Plan of care discussed with the patient. Her questions have been answered. cc: Lucas Hsu MD MTDLea
[2018-10-10] MEDS: PERIDEX MT SCH ×2 (08:56→22:03)
--- NOTE | 2018-10-10 09:10 | GENERAL SURGERY PROGRESS NOTE ---
DATE: 10/10/2018 SUBJECTIVE: The patient complains of abdominal pain, but not worse than yesterday. She denies nausea or vomiting. She reports some flatus. She also sat in a chair for 45 minutes yesterday. OBJECTIVE: Vital Signs: She is afebrile. Vital signs are stable. Urine output is excellent at 3150 mL yesterday, NG tube only 400 mL, EM drain #1 under 100 mL, and #2 roughly 200 mL, both are serosanguineous. General: She is awake, alert, and oriented x3. No acute distress. CV: Regular rate and rhythm. Respiratory: Clear bilateral breath sounds. No work of breathing. Gastrointestinal: Soft, nondistended, appropriately tender. Midline incisional dressing is dry. She has a few bowel sounds. Extremities: No clubbing, cyanosis, or edema. LABORATORY DATA: Electrolytes reviewed and notable for sodium of 131. IMAGING: Chest x-ray shows mild bibasilar atelectasis. No significant pleural fluid collection or infiltrate. ASSESSMENT AND PLAN: A 68-year-old female, postoperative day 3, Whipple and partial colectomy for right upper quadrant mass. I want her to mobilize more today, and work with Physical Therapy. We will get an upper gastrointestinal and small bowel series through the nasogastric tube to assess patency of her anastomoses and small bowel function, and perhaps start her on a clear liquid diet if that study is normal. I will transfer her to the floor after that study if stable. Continue Lovenox for deep venous thrombosis prophylaxis, and Clinimix and lipids for now for nutrition. cc: Liu Lakhani MD
[2018-10-10] MEDS: ZOFRAN IV PRN ×2 (16:16→22:04)
--- NOTE | 2018-10-10 16:30 | Diag Imaging Result Doc PS360 ---
EXAM: GI/SW/SM BOWEL 10/10/2018 HISTORY: s/p whipple TECHNIQUE: Small bowel follow-through following injection of water-soluble contrast into the NG tube, 16 images. Fluoroscopy time one minute 31 seconds, 1099 cGy. COMMENT: Water-soluble contrast was injected in the NG tube under fluoroscopic observation. There is no evidence of extravasation of contrast from the anastomosis. There is slow progress of the contrast column through the small bowel and at six hours of this is seen in the right abdomen. These findings have been discussed with Dr. Lakhani at 1620. IMPRESSION: Patent gastrojejunal anastomosis. There is gas in the afferent limb, which appears patent. By six hours 15 minutes the contrast column has not reached the ileocecal valve. Delayed images may be obtained for this purpose. Electronically signed by Frederick Cage 10/10/2018 4:28 PM
[2018-10-10] MEDS: SODIUM CHLORIDE 0.9% INJ SCH (22:04)
[2018-10-10] MEDS: PROTONIX IV SCH (22:04)
[2018-10-11] MEDS: ZOFRAN IV PRN ×2 (05:35→12:59)
[2018-10-11] MEDS: MORPHINE IV PRN ×3 (05:35→21:20)
[2018-10-11 06:16] LABS: BASO# 0.01 X1000 (0.0-0.2); BASO% 0.1 % (0.0-0.8); EOS# 0.32 X1000 (0.0-0.7); EOS% 4.4 % (0.0-10.0); HEMATOCRIT 30.6 % (37.0-47.0); IMM GRAN# 0.04 X1000 (0.0-0.04); IMM GRAN% 0.6 % (0.0-0.5); LYMPH# 0.75 X1000 (1.2-3.4); LYMPH% 10.3 % (20.5-51.1); MCH 33.6 PG (27-31); MCHC 32.7 g/dL (33-37); MCV 102.7 FL (81-99); MONO# 0.79 X1000 (0.11-0.59); MONO% 10.9 % (1.7-9.3); MPV 10.3 FL (7.4-10.4); NEUT# 5.35 X1000 (1.4-6.5); NEUT% 73.7 % (42.2-75.2); PLT 293 X1000 (130-400); RBC 2.98 XMIL (4.2-5.4); RDW 12.7 % (11.5-14.5); WBC 7.26 X1000 (4.8-10.8)
[2018-10-11 06:24] LABS: AGAP 7; BUN 13 mg/dL (8-22); CALCIUM 8.9 mg/dL (8.8-10.2); CHLORIDE 98 mmol/L (98-107); COSMO 264; CREATININE 0.4 mg/dL (0.5-0.9); ESTIMATED GFR > 60; GLUCOSE 119 mg/dL (70-104); MAGNESIUM 2.2 mg/dL (1.5-2.7); PHOSPHORUS 3.2 mg/dL (2.7-4.5); POTASSIUM 4.1 mmol/L (3.5-5.1); SODIUM 131 mmol/L (136-145); TCO2 26 mmol/L (25-35)
--- NOTE | 2018-10-11 07:28 | GENERAL SURGERY PROGRESS NOTE ---
DATE: 10/11/2018 SUBJECTIVE: The patient is reporting nausea, but she was able to drink some apple juice without throwing up. No flatus or bowel movement. OBJECTIVE: Vital signs: She is afebrile. Vital signs are stable. Urine output recorded 1150 mL yesterday. NG tube output only 200, it has been removed. EM drain #1 of 85, #2 of 30. General: She is awake and alert, no acute distress. Cardiovascular: Regular rate and rhythm. Respiratory: Bilateral equal breath sounds. No work of breathing. Gastrointestinal: Soft, nondistended. Appropriately tender. She does have bowel sounds. Her incisions look okay. Her EM drain on the left, #2, has some cloudiness and perhaps a bile tinge, either in the drain or on the 4 x 4 gauze at the exit site. LABORATORY DATA: White blood cell count 7.2, hemoglobin 10, hematocrit 30. Electrolytes reviewed and unremarkable. PATHOLOGY: Pathology pending. ASSESSMENT AND PLAN: A 68-year-old female postoperative day 4 Whipple and partial colectomy, right upper quadrant mass. Her small bowel follow-through yesterday showed no leakage of the gastrojejunal anastomosis and there was transit into the colon, although it was somewhat slow. We will start her on a clear liquid diet and slowly advance as tolerated. I am going to start Reglan also for assistance with motility. I have consulted Physical Therapy this morning and we are going to remove her Luciano catheter to help her mobilize more. I am going to send the drain fluid for amylase to check for pancreatic leak. We will continue Clinimix for now until she is tolerating p.o. better, and she is on Lovenox for DVT prophylaxis. cc: Liu Lakhani MD
[2018-10-11] MEDS: LOVENOX SUBQ SCH (08:29)
[2018-10-11] MEDS: PERIDEX MT SCH ×2 (08:30→21:21)
[2018-10-11] MEDS: REGLAN IV SCH ×2 (13:01→21:20)
[2018-10-11] MEDS: CLINIMIX E 4.25%-5% SOLUTION 1,000 ML IV SCH (13:03)
--- NOTE | 2018-10-11 17:09 | PROGRESS NOTE ---
DATE: 10/11/2018 Today Ms. Hernandes Referred to be doing a lot better since the NG tube was put back. She says she was just throwing up multiple times early on today, but since the NG tube is there, she feels a whole lot better. OBJECTIVE: Vital signs: Blood pressure is 138/76, pulse of 80, respirations 20, temperature 98.8 degrees. General: Ms. Hernandes is a 68-year-old female. She is in bed in no distress. HEENT: Mucosa is pink and moist. Anicteric. Acyanotic. Neck: Supple. Chest: Clear to auscultation. Cardiovascular: Regular rate and rhythm. Abdomen: Soft. There is a dressing over the anterior abdominal wall. There is also 2 different EM drain to abdominal wall. TOOL SMITH: Patient is awake, alert, and oriented. LABORATORY DATA: Hemoglobin is 10.0. Rest of CBC is unremarkable. Chemistry is also reviewed. Sodium is 131. Rest of chemistry is unremarkable. ASSESSMENT: 1. Hepatic flexure colon mass of unclear etiology. Patient is status post Whipple procedure with partial colectomy on October [address] Lakhani. Today is day 4 postop. 2. Suspected small-bowel obstruction versus ileus. A small bowel follow-through did show some delayed image obtained. This morning patient was having just remarkable nausea and vomiting. Nasogastric tube has been put back and she seems to be doing a lot better since. 3. Protein calorie malnutrition. Patient is on Clinimix with lipid infusion. So in general Ms. Hernandes seems to be a little better this afternoon. NG tube is in place. We are still awaiting pathology and she is getting nutritional support. cc: Guilherme Hutton MD
[2018-10-11] MEDS: LIPOSYN 20% 500 ML IV SCH (19:44)
[2018-10-11] MEDS: PROTONIX IV SCH (21:20)
[2018-10-11] MEDS: SODIUM CHLORIDE 0.9% INJ SCH (21:20)
[2018-10-11 21:38] LABS: AMYLASE BODY FLUID 19 U/L
[2018-10-12] MEDS: MORPHINE IV PRN ×3 (04:46→17:20)
[2018-10-12] MEDS: CLINIMIX E 4.25%-5% SOLUTION 1,000 ML IV SCH (04:47)
[2018-10-12] MEDS: PERIDEX MT SCH ×4 (04:52→21:43)
[2018-10-12] MEDS: REGLAN IV SCH ×5 (05:15→21:44)
--- NOTE | 2018-10-12 08:59 | Diag Imaging Result Doc PS360 ---
KUB ABDOMEN - 10/12/2018 INDICATION: SBO COMPARISON: 10/10/2018 FINDINGS: There are persistent dilated loops of proximal small bowel in the left upper quadrant, but this has improved overall. Most of the administered contrast has moved into the bowel loops in the right side of the abdomen. There is a gastric tube with the tip in the stomach. No definite free air. IMPRESSION: Improvement from prior. Some slightly dilated loops of proximal small bowel. Some passage of contrast into more distal bowel loops. This indicates persistent ileus or partial obstruction. Electronically signed by William Zayas 10/12/2018 8:57 AM
[2018-10-12] MEDS: LOVENOX SUBQ SCH (09:18)
--- NOTE | 2018-10-12 09:45 | GENERAL SURGERY PROGRESS NOTE ---
DATE: 10/12/2018 SUBJECTIVE: The patient had emesis yesterday afternoon, so the NG tube was replaced. She feels better from that standpoint. She has some occasional abdominal pain, but is well controlled with medicine. She has not had flatus or bowel movement yet. OBJECTIVE: Vital Signs: She is afebrile. Vital signs are stable. Urine output: She is voiding. NG tube output overnight looks to be 1200. EM drain #1 was 145 mL, #2 was 1110 mL. General: She is awake, alert, oriented x3. No acute distress. CV: Regular rate and rhythm. Respiratory: Bilateral equal breath sounds. No work of breathing. Gastrointestinal: Soft, nondistended. Hypoactive bowel sounds. Incisional dressing is dry. Her drains have serosanguineous fluid. No bile appreciated. LABORATORY: None today. Amylase from the drain yesterday was normal at 19. IMAGING: An abdominal x-ray this morning shows some proximal dilated small bowel. There is some contrast seen in the colon. Overall, this is improved compared to yesterday. ASSESSMENT AND PLAN: A 68-year-old female postoperative day 5 Whipple and partial colectomy for right upper quadrant mass. The pathology is pending. Currently, she is having a postoperative ileus. We will continue the NG tube, NPO, order a PICC line and start TPN. She continues to receive DVT prophylaxis. Physical therapy has been consulted. cc: Liu Lakhani MD
[2018-10-12 10:05] LABS: INR 0.86; PROTIME 11.8 Seconds (11.0-16.0)
[2018-10-12] MEDS ORDERED: NS 250 ML ONE (11:01)
[2018-10-12 14:32] LABS: AGAP 9; ALB/GLOB RATIO 0.9; ALBUMIN 2.7 g/dL (3.5-5.0); ALKALINE PHOSPHATASE 122 U/L (32-104); BUN 16 mg/dL (8-22); CALCIUM 8.7 mg/dL (8.8-10.2); CHLORIDE 98 mmol/L (98-107); COSMO 265; CREATININE 0.3 mg/dL (0.5-0.9); ESTIMATED GFR > 60; GLUCOSE 116 mg/dL (70-104); GOT 18 U/L (10-30); GPT 13 U/L (10-36); PHOSPHORUS 3.5 mg/dL (2.7-4.5); POTASSIUM 4.7 mmol/L (3.5-5.1); SODIUM 131 mmol/L (136-145); TCO2 24 mmol/L (25-35); TOTAL BILIRUBIN 0.27 mg/dL (0.20-1.00); TOTAL PROTEIN 5.8 g/dL (6.3-8.3)
[2018-10-12] MEDS ORDERED: POTASSIUM CHLORIDE IV SCH ×8 (16:45)
[2018-10-12] MEDS ORDERED: TPN ELECTROLYTES IV SCH ×8 (16:45)
[2018-10-12] MEDS ORDERED: [UNRECOGNIZED DRUG - OTHER] IV SCH ×8 (16:45)
[2018-10-12] MEDS ORDERED: MAGNESIUM SULFATE IV SCH ×8 (16:45)
--- NOTE | 2018-10-12 17:32 | PROGRESS NOTE ---
DATE: 10/12/2018 SUBJECTIVE: This morning, Ms. Hernandes referred to be doing okay. According to her, since the NG tube is in, she has been feeling a lot better. She was getting a PICC line in the left arm. OBJECTIVE: Vital signs: Blood pressure is 130/75, pulse of 84, respirations 14, temperature is 98.1 degrees. General: Ms. Hernnades is 68-year-old female. She is in bed, no distress. HEENT: Mucosa is pink and moist. Anicteric. Acyanotic. Neck: Supple. Chest: Good air entry bilateral. There were no crepitations, no rhonchi. Cardiovascular: Regular rate and rhythm. Abdomen: Soft. There is a binder on the anterior abdominal wall. EM drains are also in place. Central Nervous System: Patient is awake, alert, and oriented. Intake and Output: EM drains for both were 155. NG tube drainage was about 850 in 24 hours. DIAGNOSTIC STUDIES: Still awaiting pathology report. ASSESSMENT: 1. Hepatic flexure colon mass of unclear etiology. We are still pending the pathology report. 2. Status post Whipple procedure with partial colectomy. Today is day 5 postoperatively. 3. Suspected small bowel partial obstruction versus ileus. A KUB this morning shows some mild improvement. We are going to continue bowel rest, adequate nutritional support. 4. Protein-calorie malnutrition. Patient will be started on Clinimix today. 5. General weakness and deconditioning. Ms. Hernandes will be evaluated by Physical Therapy as, well and we will make arrangements for her to go to rehabilitation once medically stable for discharge I have discussed the plan with the surgeon, Dr. Lakhani on board. I have also spoken to the 2 daughters of Ms. Hernandes today. cc: Guilherme Hutton MD
[2018-10-12] MEDS: LIPOSYN 20% 250 ML IV SCH (18:16)
[2018-10-12] MEDS: SODIUM CHLORIDE 0.9% INJ SCH (21:33)
[2018-10-12] MEDS: PROTONIX IV SCH (21:33)
[2018-10-13] MEDS: MORPHINE IV PRN ×4 (02:44→22:48)
[2018-10-13] MEDS: REGLAN IV SCH ×2 (02:52→08:39)
[2018-10-13 06:02] LABS: BASO# 0.02 X1000 (0.0-0.2); BASO% 0.3 % (0.0-0.8); EOS# 0.38 X1000 (0.0-0.7); EOS% 5.4 % (0.0-10.0); HEMATOCRIT 31.5 % (37.0-47.0); HEMOGLOBIN 10.5 g/dL (12.0-16.0); IMM GRAN# 0.06 X1000 (0.0-0.04); IMM GRAN% 0.9 % (0.0-0.5); LYMPH# 0.78 X1000 (1.2-3.4); LYMPH% 11.1 % (20.5-51.1); MCH 33.7 PG (27-31); MCHC 33.3 g/dL (33-37); MONO# 0.99 X1000 (0.11-0.59); MONO% 14.1 % (1.7-9.3); MPV 9.8 FL (7.4-10.4); NEUT# 4.79 X1000 (1.4-6.5); NEUT% 68.2 % (42.2-75.2); PLT 297 X1000 (130-400); RBC 3.12 XMIL (4.2-5.4); RDW 12.5 % (11.5-14.5); WBC 7.02 X1000 (4.8-10.8)
[2018-10-13 07:07] LABS: AGAP 11; BUN 15 mg/dL (8-22); CALCIUM 8.4 mg/dL (8.8-10.2); CHLORIDE 102 mmol/L (98-107); CHOLESTEROL 142 mg/dL (0-200); COSMO 275; CREATININE 0.4 mg/dL (0.5-0.9); ESTIMATED GFR > 60; GLUCOSE 112 mg/dL (70-104); GOT 24 U/L (10-30); MAGNESIUM 2.3 mg/dL (1.5-2.7); PHOSPHORUS 3.7 mg/dL (2.7-4.5); POTASSIUM 4.8 mmol/L (3.5-5.1); PREALBUMIN 13.9 mg/dL (20-40); SODIUM 137 mmol/L (136-145); TCO2 24 mmol/L (25-35); TRIGLYCERIDES 84 mg/dL (35-135)
[2018-10-13] MEDS: PERIDEX MT SCH ×2 (08:40→22:25)
[2018-10-13] MEDS: LOVENOX SUBQ SCH (08:40)
--- NOTE | 2018-10-13 11:32 | PROGRESS NOTE ---
DATE: 10/13/2018 SUBJECTIVE: This morning Ms. Hernandes referred to be doing okay. She says she was slightly nauseated, and was given something for that. Since then, she has been slightly sleepy. She was evaluated early on today by Surgery. There is a plan to clamp the NG tube to see if that can eventually be removed. OBJECTIVE: Vital signs: Blood pressure 129/83, pulse of 89, respirations 18, and temperature 98.2 degrees. The patient is saturating 97% on room air. General: Ms. Hernandes is a 68-year-old female. She is in bed in no distress. HEENT: Mucosa is pink and moist. Anicteric. Acyanotic. Neck: Supple. Chest: Good air entry bilaterally. No crepitations. No rhonchi. Cardiovascular: Regular rate and rhythm. Abdomen: Soft. The 2 drains are still in place. Skin: The dressing over the wound has been removed. The wound looks clean, and is affronted with surgical clips. No bleeding and no secretions around the surgical line. Extremities: No pedal edema. ELECTRIC SHIPYARD OPERATOR: Patient is awake, alert, and oriented. LABORATORY DATA: Has been reviewed. CBC shows macrocytic anemia. Chemistry is completely normal. Patient's prealbumin is 13.9, which is low. ASSESSMENT: 1. 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 The patient is status post Whipple procedure with removal of the mass. Today is day 6 postop. She is still pending the pathology report. 2. Status post Whipple procedure with partial colectomy. 3. Suspected small bowel obstruction versus ileus. The patient is still with NG tube. There is a plan to clamp it today, and see if it can eventually be removed. 4. Protein calorie malnutrition. Patient is on TPN. 5. Generalized weakness and deconditioning. Physical Therapy is on board. PLAN: 1. In general, I think Ms. Hernandes is fairly stable. She has not recovered completely bowel function. She has not had any bowel movement yet. They are still pending. There is an order from the surgery colleagues to clamp the NG tube, and see if we can eventually remove it later on today. We are still pending the pathology report as well. 2. We have consulted Social Work for Ms. Hernandes for possible rehab placement when she is medically stable. cc: Guilherme Hutton MD
[2018-10-13] MEDS: ZOFRAN IV PRN (13:34)
--- NOTE | 2018-10-13 14:11 | GENERAL SURGERY PROGRESS NOTE ---
DATE: 10/13/2018 SUBJECTIVE: The patient reports improving abdominal pain, also improving nausea. She reports a small greenish bowel movement yesterday, but no flatus. OBJECTIVE: She is afebrile. Vital signs are stable. Urine output is not recorded. NG tube output 350. EM drain number one 45, number two 30, both serosanguineous.General: She is awake, alert, oriented x4. No acute distress. Respiratory: Bilateral breath sounds. No work of breathing. CV: Regular rate and rhythm. GI: Soft, nondistended. She has a few bowel sounds present. Incision is clean, dry, and intact. EM drains are intact with serosanguineous output. Extremities: No clubbing, cyanosis, or edema. LABORATORY: CBC and metabolic profile reviewed and unremarkable. Pathology pending. ASSESSMENT AND PLAN: A 68-year-old female postoperative day 7 Whipple and partial colectomy. She has postoperative ileus and probably gastric dysmotility. We will begin NG tube clamp trials. Continue TPN for nutrition and physical therapy. cc: Liu Lakhani MD
[2018-10-13] MEDS: TPN ELECTROLYTES 20 ML, MAGNESIUM SULFATE 4 MEQ, POTASSIUM CHLORIDE 20 MEQ, M.V.I.-12 1... IV SCH ×8 (17:55)
[2018-10-13] MEDS: LIPOSYN 20% 250 ML IV SCH (17:55)
[2018-10-13] MEDS: PROTONIX IV SCH (22:24)
[2018-10-14] MEDS: MORPHINE IV PRN ×3 (05:08→21:08)
[2018-10-14 06:01] LABS: AGAP 10; BUN 26 mg/dL (8-22); CALCIUM 9.1 mg/dL (8.8-10.2); CHLORIDE 98 mmol/L (98-107); COSMO 270; CREATININE 0.4 mg/dL (0.5-0.9); ESTIMATED GFR > 60; GLUCOSE 115 mg/dL (70-104); MAGNESIUM 2.3 mg/dL (1.5-2.7); PHOSPHORUS 3.6 mg/dL (2.7-4.5); POTASSIUM 4.5 mmol/L (3.5-5.1); SODIUM 132 mmol/L (136-145); TCO2 24 mmol/L (25-35)
[2018-10-14] MEDS ORDERED: MINERAL OIL NG ONE (08:23)
[2018-10-14] MEDS: LOVENOX SUBQ SCH (10:22)
[2018-10-14] MEDS: PERIDEX MT SCH ×2 (10:22→21:00)
--- NOTE | 2018-10-14 10:56 | GENERAL SURGERY PROGRESS NOTE ---
DATE: 10/14/2018 SUBJECTIVE: The patient is doing okay this morning. No severe pain nausea or vomiting. OBJECTIVE: She is afebrile. Vital signs are stable.General: She is awake, alert, oriented, no acute distress. CV: Regular rate and rhythm. Respiratory: Bilateral equal breath sounds. No work of breathing. Gastrointestinal: Soft, nondistended appropriately tender. Incision is clean, dry, and intact. EM drains have serosanguineous fluid. No bile. NG tube output is bilious and 700 mL recorded yesterday. The EM drain outputs are 15 and 30 mL. LABORATORY: Metabolic profile reviewed and notable for a BUN elevated at 26. Pathology pending. ASSESSMENT AND PLAN: A 68-year-old female postoperative day 7 Whipple and partial colectomy for right upper quadrant mass. She is having a postoperative ileus. Therefore, we will clamp her NG tube and give her a trial of clear liquids today to see if she tolerates it. Continue physical therapy. Continue TPN for nutrition for now. We will leave the drains in through the weekend. I will probably remove them on Wednesday. cc: Liu Lakhani MD
--- NOTE | 2018-10-14 14:01 | PROGRESS NOTE ---
DATE: 10/14/2018 SUBJECTIVE: This morning Ms. Hernandes refers to be doing fairly okay. No new nauseation or vomiting. She has been evaluated by surgery and they are going to start her on some clears and clamp the NG tube and re-evaluate her later today. OBJECTIVE: Vital signs: Blood pressure is 125/78, pulse of 92, respirations 16, temperature 97.7 degrees. General: Ms. Hernandes is a 68-year-old female. She is in bed, no distress. Mucosa is pink and moist. Anicteric. Acyanotic. Neck: Supple. Chest: Good air entry bilateral. There is no crepitations, no rhonchi. Cardiovascular: Regular rate and rhythm. GI: Abdomen is soft. There are still [address] Wound is clean. Continues to be a front-end with surgical clips. Extremities: No pedal edema. MANUFACTURER AGENT: Patient is awake, alert, and oriented. LABORATORY DATA: Chemistry is reviewed, is unremarkable. ASSESSMENT: 1. 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 The patient is status post mass removal. We still pending the pathology report. Today is day 6 after day 7 postop. 2. Status post Whipple procedure with partial colectomy. 3. Postoperative ileus with gastric dysmotility. NG tube is still in place. There is a plan to clamp it and start the patient on clears and re-evaluate her later on today. 4. Protein calorie malnutrition. Patient is on TPN. 5. Generalized weakness and deconditioning. Physical therapy has been consulted. PLAN: In general, I think Ms. Willard is doing fairly okay. She continues to be generally weak. She is getting TPN. She is also getting physical therapy and we are pending the pathology report on the colonic mass. cc: Guilherme Hutton MD
--- NOTE | 2018-10-14 15:56 | GENERAL SURGERY PROGRESS NOTE ---
DATE: 10/14/2018 DATE AND TIME OF EXAM: 10/14/2018 at 3:04 p.m. SUBJECTIVE: The patient denies nausea or abdominal pain. Her NG tube has been clamped since this morning. A residual was checked and she has had about 100 mL of bilious fluid residual. She has been drinking some liquids without nausea. GI soft and nondistended. Pathology still pending. ASSESSMENT AND PLAN: A 68-year-old female status post Whipple and partial colectomy. She has had some delayed gastric emptying and postoperative ileus. This seems to be improving. We will remove the NG tube and cautiously advance her diet over the weekend. cc: Liu Lakhani MD
[2018-10-14] MEDS: TPN ELECTROLYTES 20 ML, MAGNESIUM SULFATE 4 MEQ, POTASSIUM CHLORIDE 20 MEQ, M.V.I.-12 1... IV SCH ×8 (17:47)
[2018-10-14] MEDS: LIPOSYN 20% 250 ML IV SCH (17:48)
[2018-10-14] MEDS: PROTONIX IV SCH (21:08)
[2018-10-15] MEDS: PERIDEX MT SCH ×2 (00:53→15:58)
[2018-10-15 06:23] LABS: AGAP 6; BUN 27 mg/dL (8-22); CALCIUM 8.9 mg/dL (8.8-10.2); CHLORIDE 98 mmol/L (98-107); COSMO 267; CREATININE 0.4 mg/dL (0.5-0.9); ESTIMATED GFR > 60; GLUCOSE 114 mg/dL (70-104); MAGNESIUM 2.2 mg/dL (1.5-2.7); PHOSPHORUS 3.5 mg/dL (2.7-4.5); POTASSIUM 4.2 mmol/L (3.5-5.1); SODIUM 130 mmol/L (136-145); TCO2 26 mmol/L (25-35)
--- NOTE | 2018-10-15 07:59 | PROGRESS NOTE ---
DATE: 10/15/2018 SUBJECTIVE: This morning Ms. Hernandes refers to be doing okay. NG tube was removed yesterday and she is on clear liquid and she seems to be tolerating that. She did have a bowel movement this morning documented. OBJECTIVE: Vitals: Blood pressure is 121/64, pulse of 95, respirations 16, temperature is 98.5 degrees. The patient is saturating 100% on room air. General: Ms. Hernandes is a 68-year-old female. She is in bed, no distress. HEENT: Mucosa is pink and moist. Anicteric. Acyanotic. Neck: Supple. Chest: Good air entry bilateral. There were no crepitations. No rhonchi. GI: Abdomen is soft, minimally tender. There are [address] Wound is clean, well affronted with surgical clips. Extremities: No pedal edema. RETAIL EQUIPMENT ASSOCIATE: Patient is awake, alert, and oriented. There is no focal neurological deficit. LABORATORY DATA: The chemistry is reviewed today. Sodium is 130, rest of chemistry is unremarkable. CURRENT MEDICATIONS: Have all been reviewed. ASSESSMENT: 1. 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 Patient is status post mass removal. We are still pending pathology report. Today is day 8 postop. 2. Status post Whipple procedure with partial colectomy associated with postoperative ileus and gastric dysmotility. The patient seems to be gradually recovering. NG tube was removed yesterday and she is tolerating her clear liquids. We will wait for surgery evaluation today to see if we can advance the diet. 3. Protein calorie malnutrition. Patient is on TPN. 4. Generalized weakness and deconditioning. Physical therapy on board. 5. Ms. Hernandes is also on Lovenox for DVT prophylaxis. 6. Disposition. We are still pending insurance approval for [facility] rehab. cc: Guliherme Hutton MD
[2018-10-15] MEDS: LOVENOX SUBQ SCH (08:55)
--- NOTE | 2018-10-15 13:27 | GENERAL SURGERY PROGRESS NOTE ---
DATE: 10/15/2018 SUBJECTIVE: Had a large bowel movement overnight. No abdominal pain. No fevers. No tachycardia. OBJECTIVE: General: She is alert. Abdomen: Soft. EM drain serosanguineous. LABORATORY DATA: I reviewed her labs. Creatinine 0.4. Sodium is a little low at 130. Glucose has been okay. ASSESSMENT AND PLAN: A 68-year-old female status post pancreaticoduodenectomy with right colectomy for a large gastrointestinal malignancy. She is on TPN. We will keep her NG tube out today. She is on clear liquids and we will continue this for now. She is on Lovenox and a PPI. cc: Chaka Camacho MD
[2018-10-15] MEDS: MORPHINE IV PRN (17:18)
[2018-10-15] MEDS: LIPOSYN 20% 250 ML IV SCH (17:55)
[2018-10-15] MEDS: TPN ELECTROLYTES 20 ML, MAGNESIUM SULFATE 4 MEQ, POTASSIUM CHLORIDE 20 MEQ, M.V.I.-12 1... IV SCH ×8 (17:55)
[2018-10-16] MEDS: NORCO-7.5 PO PRN ×3 (00:24→18:30)
[2018-10-16] MEDS: PROTONIX IV SCH ×2 (00:40→21:35)
[2018-10-16] MEDS: PERIDEX MT SCH ×2 (00:40→09:37)
[2018-10-16 06:24] LABS: AGAP 10; BUN 34 mg/dL (8-22); CALCIUM 8.3 mg/dL (8.8-10.2); CHLORIDE 101 mmol/L (98-107); COSMO 279; CREATININE 0.3 mg/dL (0.5-0.9); ESTIMATED GFR > 60; GLUCOSE 122 mg/dL (70-104); MAGNESIUM 2.1 mg/dL (1.5-2.7); PHOSPHORUS 3.3 mg/dL (2.7-4.5); POTASSIUM 3.8 mmol/L (3.5-5.1); SODIUM 135 mmol/L (136-145); TCO2 24 mmol/L (25-35)
[2018-10-16] MEDS: LOVENOX SUBQ SCH (08:36)
--- NOTE | 2018-10-16 12:29 | PROGRESS NOTE ---
DATE: 10/16/2018 SUBJECTIVE: This morning, Ms. Hernandes referred to be doing okay. She felt somewhat nauseated early on today. No vomiting. OBJECTIVE: Vital Signs: Blood pressure is 118/73, pulse of 90, respirations are 12, temperature is 97.6 degrees. General Examination: Ms. Hernandes is a 68-year-old, female. She is in bed. No distress. HEENT: Mucosa is pink and moist. Anicteric. Acyanotic. Neck: Supple. Chest: Good air entry bilaterally. Cardiovascular: Regular rate and rhythm. GI: Abdomen is soft. Two drains in place. The surgical wound is clean, well-affronted with clips. Extremities: No pedal edema. BATCH ROLLER OPERATOR: The patient is awake, alert. Followed basic commands. Laboratory Data: Chemistry is reviewed and is unremarkable. We are still pending pathology report. ASSESSMENT: 1. 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 Still pending pathology report. 2. Status post Whipple procedure with partial colectomy associated with postoperative ileus and gastric dysmotility, stable. Patient is tolerating her clear liquids. Surgery is on board. 3. Protein calorie malnutrition. Patient is on total parenteral nutrition. 4. Generalized weakness and deconditioning. Physical therapy is on board. PLAN: In general, I think Ms. Hernandes is fairly stable. She continues to have some nauseation but no vomiting. She seems to be tolerating her clears. We will be waiting further recommendation from surgery to advance her diet. cc: Guilherme Hutton MD
[2018-10-16 12:41] LABS: HEMOGLOBIN 11.3 g/dL (12.0-16.0); MCH 34.2 PG (27-31); MCHC 33.2 g/dL (33-37); MPV 10.8 FL (7.4-10.4); PLT 301 X1000 (130-400); RDW 12.9 % (11.5-14.5); WBC 10.09 X1000 (4.8-10.8)
[2018-10-16 12:42] LABS: BASO# 0.04 X1000 (0.0-0.2); BASO% 0.4 % (0.0-0.8); EOS# 0.33 X1000 (0.0-0.7); EOS% 3.3 % (0.0-10.0); IMM GRAN# 0.12 X1000 (0.0-0.04); IMM GRAN% 1.2 % (0.0-0.5); LYMPH# 1.18 X1000 (1.2-3.4); LYMPH% 11.7 % (20.5-51.1); MONO# 0.88 X1000 (0.11-0.59); MONO% 8.7 % (1.7-9.3); NEUT# 7.54 X1000 (1.4-6.5); NEUT% 74.7 % (42.2-75.2)
--- NOTE | 2018-10-16 14:30 | GENERAL SURGERY PROGRESS NOTE ---
DATE: 10/16/2018 SUBJECTIVE: She is tolerating clear liquids and having bowel function. No significant pain. PHYSICAL EXAMINATION: Abdomen is soft. EM drain is serosanguineous. Heart rate is in the low 100s but better this morning. Blood pressure has been normal. LABS: Her creatinine is 0.3. Her BUN has been slowly rising up to 34. CBC was not obtained this morning. ASSESSMENT AND PLAN: A 68-year-old female status post pancreaticoduodenectomy with a right colectomy. We will check her CBC this morning, given her rising BUN, to evaluate for possible upper gastrointestinal loss. Otherwise, we will keep her on clear liquids with her drain for now. She is on total parenteral nutrition. Pain is controlled. She is quite debilitated and weak. We will follow her. cc: Chaka Camacho MD
[2018-10-16] MEDS: TPN ELECTROLYTES 20 ML, MAGNESIUM SULFATE 4 MEQ, POTASSIUM CHLORIDE 20 MEQ, M.V.I.-12 1... IV SCH ×8 (17:44)
[2018-10-16] MEDS: LIPOSYN 20% 250 ML IV SCH (17:44)
[2018-10-16] MEDS: SODIUM CHLORIDE 0.9% INJ SCH (21:35)
[2018-10-16] MEDS: MORPHINE IV PRN (21:36)
[2018-10-17] MEDS: PERIDEX MT SCH ×3 (00:16→20:23)
[2018-10-17] MEDS: NORCO-7.5 PO PRN ×3 (05:47→19:03)
[2018-10-17 06:11] LABS: AGAP 7; CHLORIDE 98 mmol/L (98-107); POTASSIUM 3.8 mmol/L (3.5-5.1); SODIUM 129 mmol/L (136-145); TCO2 24 mmol/L (25-35)
[2018-10-17 06:12] LABS: BUN 26 mg/dL (8-22); COSMO 264; CREATININE 0.2 mg/dL (0.5-0.9); ESTIMATED GFR > 60; GLUCOSE 112 mg/dL (70-104); PHOSPHORUS 2.7 mg/dL (2.7-4.5)
[2018-10-17] MEDS ORDERED: SAMSCA PO ONE (06:15)
[2018-10-17] MEDS: LOVENOX SUBQ SCH (08:37)
--- NOTE | 2018-10-17 09:37 | GENERAL SURGERY PROGRESS NOTE ---
DATE: 10/17/2018 SUBJECTIVE: The patient is doing well. She denies nausea. She is tolerating clear liquids. She has had several bowel movements and flatus. She is beginning to mobilize with assistance, but remains quite weak and easily fatigues. OBJECTIVE: Vital Signs: She is afebrile. Vital signs are stable. General: She is awake, alert, and oriented x3. No acute distress. CV: Regular rate and rhythm. Respiratory: Bilateral breath sounds. No work of breathing. GI: Soft, nondistended, appropriately tender. Incision is clean, dry, and intact without erythema. EM drains are serosanguineous with 55 and 27 mL out respectively. LABORATORY DATA: Electrolyte panel was reviewed and notable for sodium of 129, otherwise unremarkable. PATHOLOGY: Pending. ASSESSMENT AND PLAN: A 68-year-old female, postoperative day 10, Whipple and partial colectomy. We will advance her to a gastrointestinal soft diet today, and discontinue the Clinimix, if she tolerates it. I will plan on removing her Rudy-Castillo drains tomorrow, and I anticipate discharge to rehab in the next 24 to 48 hours. cc: Liu Lakhani MD
--- NOTE | 2018-10-17 15:48 | PROGRESS NOTE ---
DATE: 10/17/2018 SUBJECTIVE: This morning the patient refers to be doing a lot better. Denies any major complaints. She has been started on GI soft diet, and she seems to have tolerated both her breakfast and her lunch. OBJECTIVE: Vital signs: Blood pressure 136/81, pulse of 87 respirations 20, and temperature 98.5 degrees. General: Ms. Hernandes is a 68-year-old female. She is in bed in no distress. Mucosa is pink and moist. Anicteric. Acyanotic. Neck: Supple. Chest: Good air entry bilaterally. There were no crepitations. Cardiovascular: Regular rate and rhythm. Abdomen: Soft. The fresh surgical wound is affronted with clips. It looks clean. No secretions. There are two EM drains in place in the abdominal wall. DIRECTOR PARK: Patient is awake, alert, and oriented. LABORATORY DATA: Chemistry is reviewed. Sodium is 129. Rest of the chemistry is unremarkable. CURRENT MEDICATIONS: All have been reviewed. No changes. ASSESSMENT: 1. 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 We are still pending pathology. I spoke with the pathology department this morning, and I was informed that they are still waiting for final immuno chemical stains from [facility]. 2. Status post Whipple procedure with partial colectomy associated with postoperative ileus and gastric dysmotility. This seems to have all improved. The patient has been started on GI soft diet and, she is tolerating that. She has not had any more nausea or vomiting today. 3. Protein calorie malnutrition. Continue to improved. 4. Generalized weakness and deconditioning. Physical Therapy is on board, and there is a plan for rehab placement. 5. Hyponatremia in a euvolemic patient. The patient has been given a dose of [place]. We will recheck on this in the morning. PLAN: In general, Ms. Hernandes is doing fairly better. She has been admitted to the hospital for the past 14 days. Initially, she presented because of right upper quadrant pain and nausea and vomiting. Workup revealed mid epigastric right upper quadrant mass. An exploratory laparotomy was subsequently done. Whipple procedure and a removal of hepatic flexure mass was done. Postoperatively, Ms Hernandes had some ileus and gastric dysmotility which seems to have progressively gotten better. She has now been started on diet and she is tolerating that. There is a plan to remove the EM drains in her abdomen hopefully tomorrow, and then get her to rehab. I spoke with the social media strategist today, and it appears that [facility] might have a bed tomorrow or the day after. We will be following up accordingly. cc: Guilherme Hutton MD
[2018-10-17] MEDS ORDERED: TPN ELECTROLYTES 20 ML, MAGNESIUM SULFATE 4 MEQ, POTASSIUM CHLORIDE 20 MEQ, M.V.I.-12 1... IV SCH ×8 (18:44)
[2018-10-17] MEDS ORDERED: LIPOSYN 20% 250 ML IV SCH (18:44)
[2018-10-18 05:56] LABS: AGAP 12; BUN 21 mg/dL (8-22); CALCIUM 8.5 mg/dL (8.8-10.2); CHLORIDE 102 mmol/L (98-107); CHOLESTEROL 152 mg/dL (0-200); COSMO 278; CREATININE 0.4 mg/dL (0.5-0.9); ESTIMATED GFR > 60; GLUCOSE 117 mg/dL (70-104); GOT 20 U/L (10-30); MAGNESIUM 2.1 mg/dL (1.5-2.7); PHOSPHORUS 3.2 mg/dL (2.7-4.5); POTASSIUM 3.7 mmol/L (3.5-5.1); PREALBUMIN 17.6 mg/dL (20-40); SODIUM 137 mmol/L (136-145); TCO2 23 mmol/L (25-35); TRIGLYCERIDES 73 mg/dL (35-135)
[2018-10-18] MEDS: PROTONIX PO SCH ×2 (05:57→06:00)
[2018-10-18] MEDS ORDERED: NS 1,000 ML IV SCH (08:15)
[2018-10-18] MEDS: NORCO-7.5 PO PRN (09:18)
[2018-10-18] MEDS: LOVENOX SUBQ SCH (09:18)
[2018-10-18] MEDS: PERIDEX MT SCH (09:19)
--- NOTE | 2018-10-18 09:55 | GENERAL SURGERY PROGRESS NOTE ---
DATE: 10/18/2018 SUBJECTIVE: The patient is doing well. She is eating without nausea or vomiting. She is having bowel function. She is ambulating with assistance. OBJECTIVE: Vital Signs: She is afebrile. Vital signs are stable. General: She is awake, alert, oriented x3. No acute distress. CV: Regular rate and rhythm. Respiratory: Bilateral breath sounds. No work of breathing. Gastrointestinal: Soft, nondistended, appropriately tender. Incision is clean, dry, and intact. EM drains are serosanguineous, and I will remove them today. LABORATORY DATA: Her metabolic profile was reviewed and notable for improved prealbumin to 17.6. PATHOLOGY: Still pending. ASSESSMENT AND PLAN: A 68-year-old female status post Whipple and partial colectomy for right upper quadrant mass. The final pathology is still pending. Clinically, she is much improved. I removed her drains today. We will stop her telemetry, and remove the peripherally-inserted central catheter line, and I think she is ready for discharge to rehab, at least from my standpoint. cc: Liu Lakhani MD
[2018-10-18 11:57] VITALS: BP 115/76
--- NOTE | 2018-10-18 13:53 | DISCHARGE SUMMARY ---
ADMISSION DATE: 10/03/2018 DISCHARGE DATE: 10/18/2018 PRIMARY CARE PHYSICIAN: Dr. Scott Pennington. BILINGUAL COUNTER SALES RETAIL: Dr. Suleiman Heart. CONSULTATIONS: From GI, General Surgery, Hematology/Oncology. ADMISSION DIAGNOSES: 1. Right upper quadrant abdominal mass with pain and history of sigmoid adenocarcinoma with polyps. 2. Imaging revealed a cystitis, but was asymptomatic. 3. Arthritis. 4. Seasonal allergies. 5. Tobacco abuse. DISCHARGE DIAGNOSES: 1. Hepatic flexure colon mass of uncertain etiology with pathology pending. 2. Status post Whipple procedure with partial colectomy associated with postoperative ileus and gastric dysmotility, all improved. 3. Protein calorie malnutrition. 4. Generalized weakness and deconditioning. SUMMARY OF FINDINGS: This is a 68-year-old female who had a history of sigmoid adenocarcinoma in 2017 with colon resection at that time. Had been followed by her GI doctor and had a colonoscopy in June 2018 with biopsies at that time of a polyp at the splenic caitlyn flexure that showed tubulovillous adenoma. She was informed that she will be having colonoscopy yearly for her followup. Her complaint was 2 weeks ago she had nausea, vomiting after eating, 20 to 30 minutes after eating, developed right upper quadrant abdominal pain, was extremely tender to palpation, had become more weak, and had a 25-30 pounds weight loss. Her workup included an abdomen and pelvic CT that revealed a large mass in the right upper quadrant indicating advanced malignancy. It also showed some cystitis, but she was asymptomatic, so she was admitted. We did an echocardiogram on 10/03/2018 that showed an ejection fraction of 60 to 65 percent. We consulted General Surgery, who did a Whipple procedure with a partial colectomy, had an associated postoperative ileus and gastric dysmotility that have all resolved. We do not have her pathology reports back at this time, but it is felt that she has improved that she can be safely discharged to rehab. DISCHARGE MEDICATIONS: [place] 7.5 one p.o. q. 4 hours p.r.n., Protonix 40 mg p.o. daily, MiraLAX 17 g p.o. daily p.r.n. FOLLOWUP: She will follow up with general surgeon, GI, oncology, and her primary care physician once she has completed her rehab stay and they will make her follow-up appointments at that time. TIME SPENT: This is a 35 minute discharge for Justine Hernandes. Dictated by ANTHONY Acosta for Matt Shepard MD cc: ANTHONY Acosta MD Manish Arora, MD Sammy Becdach, MD Agree with the above. the following is my own face to face assessment. abdomen soft, nontender, surgical incision stapled and c/d/i on exam. tolerating diet. discharging to rehab to follow up with surgery, and PCP. depending on path results, likely that she will need to follow up with oncology as well. LINDA
== END 2018-10-18 15:34 | disposition swing bed (61) | DRG 326 ==
LOC: ED 13:19 → SUATTDRO 17:20 → 1N 17:20 → ICU 10-07 17:29 → 4N 10-10 18:03
PROVIDERS: ATTEND Internal Medicine